=== PATIENT | female | born 1960 | race American Indian/Alaskan Native ===

== ENCOUNTER 2017-08-07 23:48 | Emergency (ER) | payer SELFPAY ==
[2017-08-08 01:52] LABS: Basophils # (Auto) 0.1 K/mm3 (0.0-0.1); Basophils % (Auto) 0.8 % (0.0-1.8); Eosinophils # (Auto) 0.1 K/mm3 (0.0-0.4); Eosinophils % (Auto) 1.3 % (0.0-4.3); Hematocrit 42.5 % (30.3-42.9); Hemoglobin 14.9 gm/dl (10.1-14.3); Lymphocytes # (Auto) 3.9 K/mm3 (1.2-5.4); Lymphocytes % (Auto) 40.4 % (13.4-35.0); Mean Corpuscular HGB Conc 35 % (30-34); Mean Corpuscular Hemoglobin 29 pg (28-32); Mean Corpuscular Volume 82 fl (79-97); Monocytes # (Auto) 0.8 K/mm3 (0.0-0.8); Platelet Count 300 K/mm3 (140-440); Red Blood Count 5.16 M/mm3 (3.65-5.03); Red Cell Distribution Width 13.3 % (13.2-15.2)
[2017-08-08 02:04] LABS: BUN/Creatinine Ratio 21; Blood Urea Nitrogen 17 mg/dL (7-17); Hemolysis Index 0
--- NOTE | 2017-08-08 02:54 | XRay Report ---
FINAL REPORT EXAM: XR ANKLE 2V LT HISTORY: Lt lower leg pain post trauma TECHNIQUE: AP and lateral views of the left ankle were submitted. FINDINGS: There are no skeletal or soft tissue abnormalities. IMPRESSION: Within normal limits.
--- NOTE | 2017-08-08 02:56 | XRay Report ---
FINAL REPORT EXAM: XR TIBIA FIBULA 2V LT HISTORY: Lt lower leg pain post trauma TECHNIQUE: Four views of the left tibia-fibula were obtained. FINDINGS: There is no evidence of fracture or soft tissue injury. Patellar spurring is noted superiorly. The soft tissues otherwise are well maintained. IMPRESSION: No evidence of acute injury.
[2017-08-08] MEDS ORDERED: PERCOCET 5/325 ONE (06:42)
[2017-08-08] MEDS ORDERED: PERCOCET 5/325 PO ONE (06:42)
--- NOTE | 2017-08-08 08:02 | Emergency Department Report ---
ED Lower Extremity HPI - General Chief Complaint: Extremity Injury, Lower Stated Complaint: LT LEG PAIN Time Seen by Provider: 08/08/17 07:06 Source: patient Mode of arrival: Ambulatory Limitations: No Limitations - History of Present Illness Initial Comments: This is a 57-year-old female nontoxic, well nourished in appearance, no acute signs of distress presents to the ED with c/o of left lower leg pain statues post fall that occurred on 07/27/2017. Patient stated she had a fall at work. Patient stated pain relieves with OTC medications but has not been subsided yet. Patient denies any calf pain, calf tenderness, hemoptysis, chest pain, shortness of breathe, fever, chills, headache, nausea, vomiting, numbness or tingling. Patient denies any allergies or PMH. MD Complaint: leg injury Injury: Leg: Left Type of Injury: blunt Place: work Severity: mild Severity scale (0 -10): 8 Improves With: immobilization Worsens With: movement, palpation Context: fall Associated Symptoms: ambulatory. denies: snap/pop sensation, swelling, numbness , tingling, unable to bear weight, able to partially bear weight - Related Data Previous Rx's Medication Instructions Recorded Last Taken Type HYDROcodone/APAP 5-325 [[place] 1 each PO Q6HR PRN #20 tablet 01/24/14 Unknown Rx 5/325] Acetaminophen/Codeine 1 tab PO Q6H PRN #20 tab 05/27/14 Unknown Rx [Acetaminophen-Codeine #3 TAB] Ibuprofen [Motrin 800 MG tab] 800 mg PO Q8H #30 tablet 05/27/14 Unknown Rx Promethazine Dm [Phenergan Dm 5 ml PO Q6H PRN #50 ml 05/27/14 Unknown Rx 6.25/15 mg 5 ml] ALBUTEROL Inhaler [Proair] 2 puff IH QID PRN #1 inhalation 06/08/14 Unknown Rx Azithromycin [Zithromax Z-JESSENIA] 250 mg PO DAILY #6 tablet 06/08/14 Unknown Rx Benzonatate [Tessalon Perles] 100 mg PO Q8HR PRN #30 capsule 06/08/14 Unknown Rx Pregabalin [Lyrica] 25 mg PO BID #60 cap 06/29/15 Unknown Rx oxyCODONE /ACETAMINOPHEN [Percocet 1 tab PO Q6HR PRN #20 tablet 06/29/15 Unknown Rx 5/325] Amoxicillin/K Clav Tab [Augmentin 1 tab PO Q12HR #20 tab 05/24/16 Unknown Rx 875 mg] Ibuprofen [Motrin] 800 mg PO Q8HR PRN #15 tablet 05/24/16 Unknown Rx traMADol [Ultram] 50 mg PO Q6HR PRN #15 tablet 08/08/17 Unknown Rx Allergies Allergy/AdvReac Type Severity Reaction Status Date / Time No Known Allergies Allergy Verified 06/29/13 19:33 ED Review of Systems ROS: Stated complaint: LT LEG PAIN Other details as noted in HPI Constitutional: denies: chills, fever Eyes: denies: eye pain, eye discharge, vision change ENT: denies: ear pain, throat pain Respiratory: denies: cough, shortness of breath, wheezing Cardiovascular: denies: chest pain, palpitations Endocrine: no symptoms reported Gastrointestinal: denies: abdominal pain, nausea, diarrhea Genitourinary: denies: urgency, dysuria, discharge Musculoskeletal: denies: back pain, joint swelling, arthralgia Skin: denies: rash, lesions Neurological: denies: headache, weakness, paresthesias Psychiatric: denies: anxiety, depression Hematological/Lymphatic: denies: easy bleeding, easy bruising ED Past Medical Hx - Past Medical History Hx Diabetes: Yes (diet controlled) Additional medical history: right knee injury - Surgical History Hx Cholecystectomy: Yes Additional Surgical History: c section. Hyst - Social History Smoking Status: Current Every Day Smoker Substance Use Type: None - Medications Home Medications: Home Medications Medication Instructions Recorded Confirmed Last Taken Type HYDROcodone/APAP 5-325 [[place] 1 each PO Q6HR PRN #20 tablet 01/24/14 05/27/14 Unknown Rx 5/325] Acetaminophen/Codeine 1 tab PO Q6H PRN #20 tab 05/27/14 Unknown Rx [Acetaminophen-Codeine #3 TAB] Ibuprofen [Motrin 800 MG tab] 800 mg PO Q8H #30 tablet 05/27/14 Unknown Rx Promethazine Dm [Phenergan Dm 5 ml PO Q6H PRN #50 ml 05/27/14 Unknown Rx 6.25/15 mg 5 ml] ALBUTEROL Inhaler [Proair] 2 puff IH QID PRN #1 inhalation 06/08/14 Unknown Rx Azithromycin [Zithromax Z-JESSENIA] 250 mg PO DAILY #6 tablet 06/08/14 Unknown Rx Benzonatate [Tessalon Perles] 100 mg PO Q8HR PRN #30 capsule 06/08/14 Unknown Rx Pregabalin [Lyrica] 25 mg PO BID #60 cap 06/29/15 Unknown Rx oxyCODONE /ACETAMINOPHEN [Percocet 1 tab PO Q6HR PRN #20 tablet 06/29/15 Unknown Rx 5/325] Amoxicillin/K Clav Tab [Augmentin 1 tab PO Q12HR #20 tab 05/24/16 Unknown Rx 875 mg] Ibuprofen [Motrin] 800 mg PO Q8HR PRN #15 tablet 05/24/16 Unknown Rx traMADol [Ultram] 50 mg PO Q6HR PRN #15 tablet 08/08/17 Unknown Rx ED Physical Exam - General Limitations: No Limitations General appearance: alert, in no apparent distress - Head Head exam: Present: atraumatic, normocephalic - Eye Eye exam: Present: normal appearance - ENT ENT exam: Present: mucous membranes moist - Neck Neck exam: Present: normal inspection, full ROM. Absent: tenderness, meningismus, lymphadenopathy, thyromegaly - Respiratory Respiratory exam: Present: normal lung sounds bilaterally. Absent: respiratory distress, wheezes, rales, rhonchi, stridor, chest wall tenderness, accessory muscle use, decreased breath sounds, prolonged expiratory - Cardiovascular Cardiovascular Exam: Present: regular rate, normal rhythm, normal heart sounds. Absent: irregular rhythm, systolic murmur, diastolic murmur, rubs, gallop - GI/Abdominal GI/Abdominal exam: Present: soft, normal bowel sounds. Absent: distended, tenderness, guarding, rebound, rigid, diminished bowel sounds - Rectal Rectal exam: Present: deferred - Extremities Exam Extremities exam: Present: normal inspection, full ROM, tenderness, normal capillary refill. Absent: pedal edema, joint swelling, calf tenderness - Expanded Lower Extremity Exam Left Hip exam: Present: normal inspection, full ROM Upper Leg exam: Present: normal inspection, full ROM Knee exam: Present: normal inspection, full ROM, full knee extension. Absent: tenderness, swelling, abrasion, laceration, ecchymosis, deformity, crepidus, dislocation, erythema, effusion, pain w/ pronation/supination, posterior draw sign, pain/laxity with valgus, pain/laxity with varus Lower Leg exam: Present: normal inspection, full ROM. Absent: tenderness, swelling, abrasion, laceration, ecchymosis, deformity, crepidus, dislocation, erythema, palpable cord, Martine's sign Ankle exam: Present: normal inspection, full ROM. Absent: tenderness, swelling , abrasion, laceration, ecchymosis, deformity, crepidus, dislocation, erythema, anterior draw sign Foot/Toe exam: Present: normal inspection, full ROM. Absent: tenderness, swelling, abrasion, laceration, ecchymosis, deformity, crepidus, dislocation, erythema, amputation, puncture wound, foreign body, calcaneal tenderness, tenderness at base of 5th metatarsal, nail avulsion, subungual hematoma Neuro vascular tendon exam: Present: no vascular compromise. Absent: pulse deficit, abnormal cap refill, motor deficit, sensory deficit, tendon deficit, extremity cold to touch, pallor, abnormal 2-point discrimination, decreased fine /light touch, foot drop, peroneal nerve deficit, significant pain with passive ROM of distal joint Gait: Positive: observed and normal 1 - pain - Back Exam Back exam: Present: normal inspection, full ROM. Absent: tenderness, CVA tenderness (R), CVA tenderness (L), muscle spasm, paraspinal tenderness, vertebral tenderness, rash noted - Neurological Exam Neurological exam: Present: alert, oriented X3, CN II-XII intact, normal gait, reflexes normal - Psychiatric Psychiatric exam: Present: normal affect, normal mood - Skin Skin exam: Present: warm, dry, intact, normal color. Absent: rash ED Course - Reevaluation(s) Reevaluation #1: 08/08/17 08:12 Patient is speaking in full sentences with no signs of distress noted. ED Lower Extremity MDM - Lab Data Result diagrams: 08/08/17 01:31 08/08/17 01:31 - Medical Decision Making This is a 57-year-old female that presents with left leg pain. Patient stable and was examined by me. Labs within normal limits and negative d-dimer. There is no calf pain or calf tenderness. There is a negative Homans sign. There is no redness or streaking red calf area. The calf is not swollen. Patient did receive pain medication which patient stated pain is relieved and subsided. An x-ray has been obtained and dictated by radiologist within normal limits and patient was notified of the x-ray results with no questions by the patient. Patient states she does have a Jimmy wrap so she will put one on patient received a urgent care. Patient was instructed to RICE therapy. Patient was also instructed referred to Follow-up with a orthopedic doctor in 3-5 days or if symptoms worsen and continue return to emergency room as soon as possible. At time of discharge, the patient does not seem toxic or ill in appearance. No acute signs of distress noted. Patient agrees to discharge treatment plan of care. No further questions noted by the patient. Patient was also instructed not to operate any machinery after discharged due to drowsiness of pain medication that she received in the ED. Critical care attestation.: If time is entered above; I have spent that time in minutes in the direct care of this critically ill patient, excluding procedure time. ED Disposition Clinical Impression: Left leg pain Disposition: DC-01 TO HOME OR SELFCARE Is pt being admited?: No Does the pt Need Aspirin: No Condition: Stable Instructions: Arthralgia (ED), Tramadol (By mouth) Additional Instructions: Follow-up with a orthopedic doctor in 3-5 days or if symptoms worsen and continue return to emergency room as soon as possible. Prescriptions: traMADol [Ultram] 50 mg PO Q6HR PRN #15 tablet PRN Reason: Pain Referrals: PRIMARY CARE, [Primary Care Provider] - 3-5 Days JOSE FRANCISCO URIOSTEGUI MD [Staff Physician] - 3-5 Days [facility] [Outside] - 3-5 Days Forms: Work/School Release Form(ED)
[2017-08-08 08:23] VITALS: BP 143/63
== END 2017-08-08 08:37 | disposition home or self-care (01) ==
LOC: ED 23:48
DX: M79.605 Pain in left leg (principal); E11.9 Type 2 diabetes mellitus without complications; F17.200 Nicotine dependence, unspecified, uncomplicated
CPT/HCPCS: 36415; 80048; 82962; 85025; 85379; 99284

== ENCOUNTER 2018-03-09 13:27 | Emergency (ER) | payer SELFPAY ==
[2018-03-09 14:55] VITALS: BP 155/73
[2018-03-09] MEDS ORDERED: PROVENTIL IH ONE (16:24)
[2018-03-09] MEDS ORDERED: LIDOCAINE VISCOUS 2% PO ONE (16:24)
--- NOTE | 2018-03-09 16:31 | Emergency Department Report ---
ED General Adult HPI - General Chief complaint: Upper Respiratory Infection Stated complaint: D.I.B/COUGH/UNDERARM BLISTERS Time Seen by Provider: 03/09/18 16:15 Source: patient Mode of arrival: Ambulatory Limitations: No Limitations - History of Present Illness Initial comments: Patient is a 57-year-old female who presents with coughing and shortness of breath. Patient states that she's been coughing for the last couple of days she smokes about a pack a day every day. She states that coughing makes her chest pain worse nothing makes it better. Patient states that it's worse at night she also states that. Patient states that she only has chest pain when she coughs she is no fever no chills no sore throat. - Related Data Previous Rx's Medication Instructions Recorded Last Taken Type HYDROcodone/APAP 5-325 [[place] 1 each PO Q6HR PRN #20 tablet 01/24/14 Unknown Rx 5/325] Acetaminophen/Codeine 1 tab PO Q6H PRN #20 tab 05/27/14 Unknown Rx [Acetaminophen-Codeine #3 TAB] Ibuprofen [Motrin 800 MG tab] 800 mg PO Q8H #30 tablet 05/27/14 Unknown Rx Promethazine Dm (Nf) [Phenergan Dm 5 ml PO Q6H PRN #50 ml 05/27/14 Unknown Rx 6.25/15 mg 5 ml] ALBUTEROL Inhaler (OR & NICU) 2 puff IH QID PRN #1 inhalation 06/08/14 Unknown Rx [Proair] Azithromycin [Zithromax Z-JESSENIA] 250 mg PO DAILY #6 tablet 06/08/14 Unknown Rx Pregabalin [Lyrica] 25 mg PO BID #60 cap 06/29/15 Unknown Rx oxyCODONE /ACETAMINOPHEN [Percocet 1 tab PO Q6HR PRN #20 tablet 06/29/15 Unknown Rx 5/325] Amoxicillin/K Clav Tab [Augmentin 1 tab PO Q12HR #20 tab 05/24/16 Unknown Rx 875 mg] Ibuprofen [Motrin] 800 mg PO Q8HR PRN #15 tablet 05/24/16 Unknown Rx traMADol [Ultram] 50 mg PO Q6HR PRN #15 tablet 08/08/17 Unknown Rx Benzonatate [Tessalon Perles] 100 mg PO Q8HR PRN #30 capsule 03/09/18 Unknown Rx predniSONE [Deltasone] 20 mg PO BID #10 tablet 03/09/18 Unknown Rx Allergies Allergy/AdvReac Type Severity Reaction Status Date / Time No Known Allergies Allergy Verified 06/29/13 19:33 ED Review of Systems ROS: Stated complaint: D.I.B/COUGH/UNDERARM BLISTERS Other details as noted in HPI Constitutional: denies: chills, fever Eyes: denies: eye pain, eye discharge, vision change ENT: denies: ear pain, throat pain Respiratory: cough, shortness of breath. denies: wheezing Cardiovascular: denies: chest pain, palpitations Endocrine: no symptoms reported Gastrointestinal: denies: abdominal pain, nausea, diarrhea Genitourinary: denies: urgency, dysuria, discharge Musculoskeletal: denies: back pain, joint swelling, arthralgia Skin: denies: rash, lesions Neurological: denies: headache, weakness, paresthesias Psychiatric: denies: anxiety, depression Hematological/Lymphatic: denies: easy bleeding, easy bruising ED Past Medical Hx - Past Medical History Previous Medical History?: Yes Hx Diabetes: Yes (diet controlled) Additional medical history: right knee injury, bronchitis - Surgical History Past Surgical History?: Yes Hx Cholecystectomy: Yes Additional Surgical History: c section. Hyst - Social History Smoking Status: Current Every Day Smoker Substance Use Type: Alcohol, Prescribed - Medications Home Medications: Home Medications Medication Instructions Recorded Confirmed Last Taken Type HYDROcodone/APAP 5-325 [[place] 1 each PO Q6HR PRN #20 tablet 01/24/14 05/27/14 Unknown Rx 5/325] Acetaminophen/Codeine 1 tab PO Q6H PRN #20 tab 05/27/14 Unknown Rx [Acetaminophen-Codeine #3 TAB] Ibuprofen [Motrin 800 MG tab] 800 mg PO Q8H #30 tablet 05/27/14 Unknown Rx Promethazine Dm (Nf) [Phenergan Dm 5 ml PO Q6H PRN #50 ml 05/27/14 Unknown Rx 6.25/15 mg 5 ml] ALBUTEROL Inhaler (OR & NICU) 2 puff IH QID PRN #1 inhalation 06/08/14 Unknown Rx [Proair] Azithromycin [Zithromax Z-JESSENIA] 250 mg PO DAILY #6 tablet 06/08/14 Unknown Rx Pregabalin [Lyrica] 25 mg PO BID #60 cap 06/29/15 Unknown Rx oxyCODONE /ACETAMINOPHEN [Percocet 1 tab PO Q6HR PRN #20 tablet 06/29/15 Unknown Rx 5/325] Amoxicillin/K Clav Tab [Augmentin 1 tab PO Q12HR #20 tab 05/24/16 Unknown Rx 875 mg] Ibuprofen [Motrin] 800 mg PO Q8HR PRN #15 tablet 05/24/16 Unknown Rx traMADol [Ultram] 50 mg PO Q6HR PRN #15 tablet 08/08/17 Unknown Rx Benzonatate [Tessalon Perles] 100 mg PO Q8HR PRN #30 capsule 03/09/18 Unknown Rx predniSONE [Deltasone] 20 mg PO BID #10 tablet 03/09/18 Unknown Rx ED Physical Exam - General Limitations: No Limitations General appearance: alert, in no apparent distress - Head Head exam: Present: atraumatic, normocephalic - Eye Eye exam: Present: normal appearance - ENT ENT exam: Present: mucous membranes moist - Neck Neck exam: Present: normal inspection - Respiratory Respiratory exam: Present: normal lung sounds bilaterally. Absent: respiratory distress - Cardiovascular Cardiovascular Exam: Present: regular rate, normal rhythm. Absent: systolic murmur, diastolic murmur, rubs, gallop - GI/Abdominal GI/Abdominal exam: Present: soft, normal bowel sounds - Extremities Exam Extremities exam: Present: normal inspection - Back Exam Back exam: Present: normal inspection - Neurological Exam Neurological exam: Present: alert, oriented X3 - Psychiatric Psychiatric exam: Present: normal affect, normal mood - Skin Skin exam: Present: warm, dry, intact, normal color. Absent: rash ED Course Vital Signs 03/09/18 14:50 Temperature 98.7 F Pulse Rate 89 Respiratory 18 Rate Blood Pressure 155/73 O2 Sat by Pulse 97 Oximetry ED Medical Decision Making - Medical Decision Making Cdx: Bronchitis DDX: Sinusitis, allergic rhinitis, viral URI I will give patient breathing treatment or lidocaine and I'll send patient home with steroids Tessalon Perles and I will have patient follow-up for with pcp. Discussed plan with patient. Patient agrees with plan. Additional verbal discharge instructions were given. Critical care attestation.: If time is entered above; I have spent that time in minutes in the direct care of this critically ill patient, excluding procedure time. ED Disposition Clinical Impression: Bronchitis, Cough Disposition: DC-01 TO HOME OR SELFCARE Is pt being admited?: No Does the pt Need Aspirin: No Condition: Stable Instructions: Chronic Bronchitis (ED) Prescriptions: Benzonatate [Tessalon Perles] 100 mg PO Q8HR PRN #30 capsule PRN Reason: Cough predniSONE [Deltasone] 20 mg PO BID #10 tablet Referrals: BERHANE SUAZO MD [Staff Physician] - 3-5 Days
== END 2018-03-09 17:54 | disposition home or self-care (01) ==
LOC: ED 13:27
DX: J40 Bronchitis, not specified as acute or chronic (principal); E11.9 Type 2 diabetes mellitus without complications; F17.200 Nicotine dependence, unspecified, uncomplicated; F10.10 Alcohol abuse, uncomplicated; Z90.49 Acquired absence of other specified parts of digestive tract
CPT/HCPCS: 94640

== ENCOUNTER 2020-03-28 08:21 | Emergency (ER) | payer OTHER ==
[2020-03-28 08:27] VITALS: BP 138/53
[2020-03-28] MEDS ORDERED: IBUPROFEN 800 MG TAB PO ONE (10:22)
[2020-03-28] MEDS ORDERED: LIDOCAINE (1%) 10 MG/1 ML VIAL 20 ML MDV INFILTRATI ONE (10:25)
--- NOTE | 2020-03-28 10:27 | Emergency Department Report ---
ED General Adult HPI - General Chief complaint: Extremity Problem,Nontraumatic Stated complaint: FINGER/PAIN Time Seen by Provider: 03/28/20 09:18 Source: patient Mode of arrival: Ambulatory Limitations: No Limitations - History of Present Illness Initial comments: 59-year-old -[place] female patient presents with complaints of right middle finger pain and swelling x3 days. She rates her pain as a 8/10 in severity and denies any fever/chills/sweats or difficulty moving the finger or numbness/tingling/weakness in the finger. 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 She denies any allergies. - Related Data Previous Rx's Medication Instructions Recorded Last Taken Type HYDROcodone/APAP 5-325 [[place] 1 each PO Q6HR PRN #20 tablet 01/24/14 Unknown Rx 5/325] Ibuprofen [Motrin 800 MG tab] 800 mg PO Q8H #30 tablet 05/27/14 Unknown Rx Promethazine Dm (Nf) [Phenergan Dm 5 ml PO Q6H PRN #50 ml 05/27/14 Unknown Rx 6.25/15 mg 5 ml] Albuterol Mdi (or & Nicu Only) 2 puff IH QID PRN #1 inhalation 06/08/14 Unknown Rx [Proair] Azithromycin [Zithromax Z-JESSENIA] 250 mg PO DAILY #6 tablet 06/08/14 Unknown Rx Pregabalin [Lyrica] 25 mg PO BID #60 cap 06/29/15 Unknown Rx oxyCODONE /ACETAMINOPHEN [Percocet 1 tab PO Q6HR PRN #20 tablet 06/29/15 Unknown Rx 5/325] Amoxicillin/K Clav Tab [Augmentin 1 tab PO Q12HR #20 tab 05/24/16 Unknown Rx 875 mg] traMADoL [Ultram] 50 mg PO Q6HR PRN #15 tablet 08/08/17 Unknown Rx Benzonatate [Tessalon Perles] 100 mg PO Q8HR PRN #30 capsule 03/09/18 Unknown Rx predniSONE [Deltasone] 20 mg PO BID #10 tablet 03/09/18 Unknown Rx Baclofen [Lioresal] 10 mg PO TID #15 tab 08/18/18 Unknown Rx Cyclobenzaprine HCl [Flexeril 5 MG 5 mg PO TID PRN #10 tab 09/25/19 Unknown Rx TAB] Ibuprofen [Motrin 600 MG tab] 600 mg PO Q8H PRN #20 tablet 09/25/19 Unknown Rx Acetaminophen/Codeine [Tylenol 1 tab PO Q6H PRN #10 tab 03/28/20 Unknown Rx /Codeine # 3 tab] Ibuprofen [Motrin 800 MG tab] 800 mg PO Q8HR PRN #15 tablet 03/28/20 Unknown Rx Sulfamethoxazole/Trimethoprim 2 each PO BID 10 Days #40 tablet 03/28/20 Unknown Rx [Bactrim 400-80 mg Tablet] Allergies Allergy/AdvReac Type Severity Reaction Status Date / Time No Known Allergies Allergy Verified 06/29/13 19:33 ED Review of Systems ROS: Stated complaint: FINGER/PAIN Other details as noted in HPI Constitutional: denies: chills, fever, malaise Respiratory: denies: SOB with exertion Gastrointestinal: denies: nausea, vomiting Musculoskeletal: joint swelling, arthralgia Skin: change in color Neurological: denies: numbness, paresthesias Hematological/Lymphatic: denies: swollen glands ED Past Medical Hx - Past Medical History Previous Medical History?: Yes Hx Hypertension: Yes Hx Diabetes: Yes (diet controlled) Additional medical history: right knee injury, bronchitis - Surgical History Past Surgical History?: Yes Hx Cholecystectomy: Yes Additional Surgical History: c section. Hystectomy - Social History Smoking Status: Current Every Day Smoker - Medications Home Medications: Home Medications Medication Instructions Recorded Confirmed Last Taken Type HYDROcodone/APAP 5-325 [[place] 1 each PO Q6HR PRN #20 tablet 01/24/14 05/27/14 Unknown Rx 5/325] Ibuprofen [Motrin 800 MG tab] 800 mg PO Q8H #30 tablet 05/27/14 Unknown Rx Promethazine Dm (Nf) [Phenergan Dm 5 ml PO Q6H PRN #50 ml 05/27/14 Unknown Rx 6.25/15 mg 5 ml] Albuterol Mdi (or & Nicu Only) 2 puff IH QID PRN #1 inhalation 06/08/14 Unknown Rx [Proair] Azithromycin [Zithromax Z-JESSENIA] 250 mg PO DAILY #6 tablet 06/08/14 Unknown Rx Pregabalin [Lyrica] 25 mg PO BID #60 cap 06/29/15 Unknown Rx oxyCODONE /ACETAMINOPHEN [Percocet 1 tab PO Q6HR PRN #20 tablet 06/29/15 Unknown Rx 5/325] Amoxicillin/K Clav Tab [Augmentin 1 tab PO Q12HR #20 tab 05/24/16 Unknown Rx 875 mg] traMADoL [Ultram] 50 mg PO Q6HR PRN #15 tablet 08/08/17 Unknown Rx Benzonatate [Tessalon Perles] 100 mg PO Q8HR PRN #30 capsule 03/09/18 Unknown Rx predniSONE [Deltasone] 20 mg PO BID #10 tablet 03/09/18 Unknown Rx Baclofen [Lioresal] 10 mg PO TID #15 tab 08/18/18 Unknown Rx Cyclobenzaprine HCl [Flexeril 5 MG 5 mg PO TID PRN #10 tab 09/25/19 Unknown Rx TAB] Ibuprofen [Motrin 600 MG tab] 600 mg PO Q8H PRN #20 tablet 09/25/19 Unknown Rx Acetaminophen/Codeine [Tylenol 1 tab PO Q6H PRN #10 tab 03/28/20 Unknown Rx /Codeine # 3 tab] Ibuprofen [Motrin 800 MG tab] 800 mg PO Q8HR PRN #15 tablet 03/28/20 Unknown Rx Sulfamethoxazole/Trimethoprim 2 each PO BID 10 Days #40 tablet 03/28/20 Unknown Rx [Bactrim 400-80 mg Tablet] ED Physical Exam - General Limitations: No Limitations General appearance: alert, in no apparent distress, obese - Head Head exam: Present: atraumatic, normocephalic - Eye Eye exam: Present: normal appearance. Absent: scleral icterus - Neck Neck exam: Present: normal inspection - Respiratory Respiratory exam: Absent: respiratory distress - Cardiovascular Cardiovascular Exam: Present: regular rate - Neurological Exam Neurological exam: Present: alert, oriented X3 - Psychiatric Psychiatric exam: Present: normal affect, normal mood - Skin Skin exam: Present: warm, dry, intact, erythema (Mild erythema erythema and tenderness to palpation with fluctuance noted to the tip of the right middle fin [place]; patient has full range of motion and sensation of the finger with normal capillary refill). Absent: rash ED Course Vital Signs 03/28/20 03/28/20 08:27 10:30 Temperature 98.0 F Pulse Rate 77 Respiratory 18 20 Rate Blood Pressure 138/53 [Right] O2 Sat by Pulse 98 Oximetry - I & D Finger Type of Procedure: Simple Site: Right middle finger Blade Size: 11 I & D Procedure: betadine prep, sterile drapes applied, sterile dressing applied Progress: 2 cc of lidocaine 1% used anesthetize area. Minimal bleeding occurred. Mild purulent drainage was obtained. Patient was placed in a sterile dressing. She tolerated procedure well without any immediate complications. ED Medical Decision Making - Medical Decision Making 59-year-old -[place] female patient presents with complaints of right middle finger pain and swelling x3 days. She rates her pain as a 8/10 in severity and denies any fever/chills/sweats or difficulty moving the finger or numbness/tingling/weakness in the finger. 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 She denies any allergies. Paronychia noted to right middle finger. Incision and drainage was performed and mild purulent drainage was obtained and sent for wound culture. Patient is well-appearing, her vitals are normal, she is stable for discharge home. Prescription for Bactrim given along with mupirocin. Patient instructed to perform warm water soaks and follow-up with primary care doctor in 3 days. Wound care and strict return precautions were discussed in detail with patient who verbalizes understanding. Critical care attestation.: If time is entered above; I have spent that time in minutes in the direct care of this critically ill patient, excluding procedure time. ED Disposition Clinical Impression: Paronychia of finger of right hand Disposition: DC-01 TO HOME OR SELFCARE Is pt being admited?: No Condition: Stable Instructions: Paronychia (ED), Abscess Incision and Drainage (ED) Prescriptions: Sulfamethoxazole/Trimethoprim [Bactrim 400-80 mg Tablet] 2 each PO BID 10 Days #40 tablet Ibuprofen [Motrin 800 MG tab] 800 mg PO Q8HR PRN #15 tablet PRN Reason: Pain Acetaminophen/Codeine [Tylenol /Codeine # 3 tab] 1 tab PO Q6H PRN #10 tab PRN Reason: Pain , Severe (7-10) Referrals: [facility] BISI MARTINEZ MD [Primary Care Provider] - 03/30/20 Forms: Work/School Release Form(ED)
== END 2020-03-28 11:44 | disposition home or self-care (01) ==
LOC: ED 08:21
DX: L03.011 Cellulitis of right finger (principal); I10 Essential (primary) hypertension; E11.9 Type 2 diabetes mellitus without complications; F17.200 Nicotine dependence, unspecified, uncomplicated; Z90.49 Acquired absence of other specified parts of digestive tract; Z90.710 Acquired absence of both cervix and uterus; Z98.890 Other specified postprocedural states; Z79.899 Other long term (current) drug therapy
CPT/HCPCS: 87076; 87116; 87186

== ENCOUNTER 2020-04-02 14:52 | Emergency (ER) | payer OTHER ==
[2020-04-02 15:09] VITALS: BP 153/58
[2020-04-02] MEDS ORDERED: HYDROcodone/ACETAMINOPHEN 5-325 MG TAB PO ONE (16:08)
[2020-04-02] MEDS ORDERED: BACITRACIN ZINC OINT 28.4 GM TP PRN (16:52)
--- NOTE | 2020-04-02 16:56 | Emergency Department Report ---
ED General Adult HPI - General Chief complaint: Extremity Injury, Upper Stated complaint: RT HAND PAIN Time Seen by Provider: 04/02/20 15:59 Source: patient Mode of arrival: Ambulatory Limitations: No Limitations - History of Present Illness Initial comments: 59-year-old -[place] female was seen in this emergency room 5 days ago for a right middle finger paronychia. Patient presents states that her finger is still hurting and has not improved. She reports taking her antibiotic as prescribed and pain medication as prescribed. She denies any fever any new trauma to her finger. Location: right (middle finger paronychia ) Severity scale (0 -10): 10 Quality: stabbing Consistency: constant Worsens with: movement Associated Symptoms: denies other symptoms. denies: chest pain, cough, diapho resis, fever/chills, loss of appetite Treatments Prior to Arrival: NSAID - Related Data Previous Rx's Medication Instructions Recorded Last Taken Type HYDROcodone/APAP 5-325 [[place] 1 each PO Q6HR PRN #20 tablet 01/24/14 Unknown Rx 5/325] Ibuprofen [Motrin 800 MG tab] 800 mg PO Q8H #30 tablet 05/27/14 Unknown Rx Promethazine Dm (Nf) [Phenergan Dm 5 ml PO Q6H PRN #50 ml 05/27/14 Unknown Rx 6.25/15 mg 5 ml] Albuterol Mdi (or & Nicu Only) 2 puff IH QID PRN #1 inhalation 06/08/14 Unknown Rx [Proair] Azithromycin [Zithromax Z-JESSENIA] 250 mg PO DAILY #6 tablet 06/08/14 Unknown Rx Pregabalin [Lyrica] 25 mg PO BID #60 cap 06/29/15 Unknown Rx oxyCODONE /ACETAMINOPHEN [Percocet 1 tab PO Q6HR PRN #20 tablet 06/29/15 Unknown Rx 5/325] Amoxicillin/K Clav Tab [Augmentin 1 tab PO Q12HR #20 tab 05/24/16 Unknown Rx 875 mg] traMADoL [Ultram] 50 mg PO Q6HR PRN #15 tablet 08/08/17 Unknown Rx Benzonatate [Tessalon Perles] 100 mg PO Q8HR PRN #30 capsule 03/09/18 Unknown Rx predniSONE [Deltasone] 20 mg PO BID #10 tablet 03/09/18 Unknown Rx Baclofen [Lioresal] 10 mg PO TID #15 tab 08/18/18 Unknown Rx Cyclobenzaprine HCl [Flexeril 5 MG 5 mg PO TID PRN #10 tab 09/25/19 Unknown Rx TAB] Ibuprofen [Motrin 600 MG tab] 600 mg PO Q8H PRN #20 tablet 09/25/19 Unknown Rx Acetaminophen/Codeine [Tylenol 1 tab PO Q6H PRN #10 tab 03/28/20 Unknown Rx /Codeine # 3 tab] Ibuprofen [Motrin 800 MG tab] 800 mg PO Q8HR PRN #15 tablet 03/28/20 Unknown Rx Sulfamethoxazole/Trimethoprim 2 each PO BID 10 Days #40 tablet 03/28/20 Unknown Rx [Bactrim 400-80 mg Tablet] Allergies Allergy/AdvReac Type Severity Reaction Status Date / Time No Known Allergies Allergy Verified 06/29/13 19:33 ED Review of Systems ROS: Stated complaint: RT HAND PAIN Other details as noted in HPI Comment: All other systems reviewed and negative Constitutional: denies: chills, fever ENT: denies: ear pain, throat pain, dental pain, congestion Respiratory: denies: cough, shortness of breath, SOB with exertion Cardiovascular: denies: chest pain, palpitations, edema Gastrointestinal: denies: abdominal pain Genitourinary: denies: dysuria Skin: other (right middle finger pain and swelling). denies: rash Neurological: denies: headache ED Past Medical Hx - Past Medical History Previous Medical History?: Yes Hx Hypertension: Yes Hx Diabetes: Yes (diet controlled) Additional medical history: right knee injury, bronchitis - Surgical History Past Surgical History?: Yes Hx Cholecystectomy: Yes Additional Surgical History: c section. Hystectomy - Social History Smoking Status: Current Every Day Smoker Substance Use Type: Alcohol - Medications Home Medications: Home Medications Medication Instructions Recorded Confirmed Last Taken Type HYDROcodone/APAP 5-325 [[place] 1 each PO Q6HR PRN #20 tablet 01/24/14 05/27/14 Unknown Rx 5/325] Ibuprofen [Motrin 800 MG tab] 800 mg PO Q8H #30 tablet 05/27/14 Unknown Rx Promethazine Dm (Nf) [Phenergan Dm 5 ml PO Q6H PRN #50 ml 05/27/14 Unknown Rx 6.25/15 mg 5 ml] Albuterol Mdi (or & Nicu Only) 2 puff IH QID PRN #1 inhalation 06/08/14 Unknown Rx [Proair] Azithromycin [Zithromax Z-JESSENIA] 250 mg PO DAILY #6 tablet 06/08/14 Unknown Rx Pregabalin [Lyrica] 25 mg PO BID #60 cap 06/29/15 Unknown Rx oxyCODONE /ACETAMINOPHEN [Percocet 1 tab PO Q6HR PRN #20 tablet 06/29/15 Unknown Rx 5/325] Amoxicillin/K Clav Tab [Augmentin 1 tab PO Q12HR #20 tab 05/24/16 Unknown Rx 875 mg] traMADoL [Ultram] 50 mg PO Q6HR PRN #15 tablet 08/08/17 Unknown Rx Benzonatate [Tessalon Perles] 100 mg PO Q8HR PRN #30 capsule 03/09/18 Unknown Rx predniSONE [Deltasone] 20 mg PO BID #10 tablet 03/09/18 Unknown Rx Baclofen [Lioresal] 10 mg PO TID #15 tab 08/18/18 Unknown Rx Cyclobenzaprine HCl [Flexeril 5 MG 5 mg PO TID PRN #10 tab 09/25/19 Unknown Rx TAB] Ibuprofen [Motrin 600 MG tab] 600 mg PO Q8H PRN #20 tablet 09/25/19 Unknown Rx Acetaminophen/Codeine [Tylenol 1 tab PO Q6H PRN #10 tab 03/28/20 Unknown Rx /Codeine # 3 tab] Ibuprofen [Motrin 800 MG tab] 800 mg PO Q8HR PRN #15 tablet 03/28/20 Unknown Rx Sulfamethoxazole/Trimethoprim 2 each PO BID 10 Days #40 tablet 03/28/20 Unknown Rx [Bactrim 400-80 mg Tablet] ED Physical Exam - General Limitations: No Limitations General appearance: alert, in no apparent distress - Head Head exam: Present: atraumatic - Eye Eye exam: Present: normal appearance - ENT ENT exam: Present: normal exam - Respiratory Respiratory exam: Present: normal lung sounds bilaterally. Absent: respiratory distress - Cardiovascular Cardiovascular Exam: Present: regular rate, normal heart sounds - GI/Abdominal GI/Abdominal exam: Present: soft. Absent: distended, tenderness - Rectal Rectal exam: Absent: deferred - External exam: Present: normal external exam - Extremities Exam Extremities exam: Present: other (right middle finger small amount of pus collection at distal medial phalanx) - Neurological Exam Neurological exam: Present: alert, oriented X3 - Psychiatric Psychiatric exam: Present: normal affect - Skin Skin exam: Present: warm, dry, intact ED Course Vital Signs 04/02/20 04/02/20 15:08 16:23 Temperature 98.3 F Pulse Rate 72 Respiratory 15 18 Rate Blood Pressure 153/58 O2 Sat by Pulse 98 Oximetry - Reevaluation(s) Reevaluation #1: 04/02/20 16:59 I&D done small amount of pus drained right middle finger soaked in Betadine and normal saline for about 30 minutes patient tolerated well - I & D Right Hand Type of Procedure: Simple Site: right distal phalanx Blade Size: 11 I & D Procedure: betadine prep Progress: I&D of the medial portion of the distal phalanx of the right finger with the 11 blade small amount of pus drained patient tolerated well ED Medical Decision Making - Medical Decision Making Patient seen in this emergency room 5 days ago and I&D done for right medial distal phalanx finger she is currently taking Bactrim still has 5 more days left of Bactrim repeat I&D as the wound has already closed and a small amount of pus drained patient tolerated well plan is for patient to continue with Tylenol 3 as previously prescribed she is also to complete the Bactrim DS as prescribed. She is instructed to do 3 times a day warm soap water is water soaks for at least 15 minutes Critical Care Time: No Critical care attestation.: If time is entered above; I have spent that time in minutes in the direct care of this critically ill patient, excluding procedure time. ED Disposition Clinical Impression: Paronychia of finger of right hand, Paronychia of right index finger Disposition: DC-01 TO HOME OR SELFCARE Is pt being admited?: No Does the pt Need Aspirin: No Condition: Stable Instructions: Paronychia Additional Instructions: Continue with the Bactrim until all antibiotics are completed. Continue with Tylenol 3 as needed for pain. Motrin 800 mg as needed as prescribed for pain. Do warm water soaks at least 3 times a day for 15 minutes. Follow-up with your primary care doctor in 3 to 5 days if no improvement or worsening symptoms Referrals: PRIMARY CARE, [Primary Care Provider] - 3-5 Days CARBUCCIA,KEANU, MD [Staff Physician] - 3-5 Days Time of Disposition: 17:05
== END 2020-04-02 17:32 | disposition home or self-care (01) ==
LOC: ED 14:52
DX: L03.011 Cellulitis of right finger (principal); I10 Essential (primary) hypertension; E11.9 Type 2 diabetes mellitus without complications; F17.200 Nicotine dependence, unspecified, uncomplicated; Z90.710 Acquired absence of both cervix and uterus; Z90.49 Acquired absence of other specified parts of digestive tract; Z79.899 Other long term (current) drug therapy
CPT/HCPCS: 99282

== ENCOUNTER 2020-09-21 10:06 | Outpatient (CLI) | payer OTHER ==
[2020-09-21 11:12] LABS: Basophils # (Auto) 0.1 K/mm3 (0.0-0.1); Basophils % (Auto) 0.8 % (0.0-1.8); Eosinophils # (Auto) 0.1 K/mm3 (0.0-0.4); Eosinophils % (Auto) 1.2 % (0.0-4.3); Hematocrit 40.9 % (30.3-42.9); Hemoglobin 13.8 gm/dl (10.1-14.3); Lymphocytes # (Auto) 3.1 K/mm3 (1.2-5.4); Lymphocytes % (Auto) 45.9 % (13.4-35.0); Mean Corpuscular HGB Conc 34 % (30-34); Mean Corpuscular Volume 87 fl (79-97); Monocytes # (Auto) 0.6 K/mm3 (0.0-0.8); Monocytes % (Auto) 9.1 % (0.0-7.3); Platelet Count 263 K/mm3 (140-440); Red Blood Count 4.68 M/mm3 (3.65-5.03); Red Cell Distribution Width 13.3 % (13.2-15.2)
[2020-09-21 11:32] LABS: Alanine Aminotransferase 13 units/L (7-56); Albumin 4.1 g/dL (3.9-5); Blood Urea Nitrogen 12 mg/dL (7-17); Calcium 9.2 mg/dL (8.4-10.2); Erythrocyte Sedimentation Rate 13 mm/Hr (0-20); Hemolysis Index 4
[2020-09-21 11:55] LABS: BUN/Creatinine Ratio 17
== END 2020-09-21 10:07 | disposition home or self-care (01) ==
LOC: LAB 10:06
PROVIDERS: ATTEND Specialist
DX: G62.9 Polyneuropathy, unspecified (principal); G65.0 Sequelae of Guillain-Barre syndrome
CPT/HCPCS: 36415; 80053; 82306; 82607; 83921; 84165; 85025; 85652; 86038; 86225; 86235; 86334; 86431

== ENCOUNTER 2020-12-25 07:07 | Emergency (ER) | payer OTHER ==
[2020-12-25 07:41] VITALS: BP 126/56
[2020-12-25] MEDS ORDERED: ASPIRIN 325 MG TAB PO ONE (07:41)
[2020-12-25 08:11] LABS: Basophils # (Auto) 0.1 K/mm3 (0.0-0.1); Basophils % (Auto) 1.1 % (0.0-1.8); Eosinophils # (Auto) 0.1 K/mm3 (0.0-0.4); Eosinophils % (Auto) 1.2 % (0.0-4.3); Hematocrit 37.6 % (30.3-42.9); Hemoglobin 13.5 gm/dl (10.1-14.3); Lymphocytes # (Auto) 2.3 K/mm3 (1.2-5.4); Mean Corpuscular HGB Conc 36 % (30-34); Mean Corpuscular Volume 84 fl (79-97); Monocytes # (Auto) 0.6 K/mm3 (0.0-0.8); Monocytes % (Auto) 9.2 % (0.0-7.3); Platelet Count 263 K/mm3 (140-440); Red Cell Distribution Width 12.8 % (13.2-15.2)
--- NOTE | 2020-12-25 08:23 | XRay Report ---
CHEST PA AND LATERAL VIEWS INDICATION: chest pain. COMPARISON: 06/08/2014. FINDINGS: Support devices: None. Heart: Within normal limits. Lungs/Pleura: No consolidation or effusion. There are mild increased reticular markings in both lungs which are similar to the remote prior. IMPRESSION: 1. No acute findings. Signer Name: Nithin Vivas MD Signed: 12/25/2020 8:18 AM Workstation Name: [email or web address]
[2020-12-25 08:35] LABS: Alanine Aminotransferase 12 units/L (7-56); Albumin 4.3 g/dL (3.9-5); Blood Urea Nitrogen 13 mg/dL (7-17); Calcium 9.5 mg/dL (8.4-10.2); Hemolysis Index 3
[2020-12-25 08:41] LABS: BUN/Creatinine Ratio 22
[2020-12-25] MEDS ORDERED: ACETAMINOPHEN 500 MG TAB PO STA (12:42)
[2020-12-25] MEDS ORDERED: IBUPROFEN 800 MG TAB PO STA (12:42)
--- NOTE | 2020-12-25 13:03 | Emergency Department Report ---
ED Chest Pain HPI - General Chief Complaint: Chest Pain Stated Complaint: CHEST PAIN AND BACK PAIN Time Seen by Provider: 12/25/20 12:21 Source: patient Mode of arrival: Ambulatory Limitations: No Limitations - History of Present Illness Initial Comments: 60-year-old -[place] female patient presents with complaints of right shoulder pain radiating into her right chest starting last night. She describes the pain as catching and a tightness. Pain occurs mainly with movement and deep inhalation per patient. She has history of hypertension, diabetes, and hyperlipidemia. Patient is a smoker. She denies any trauma to her shoulder, cough, hemoptysis, shortness of breath, abdominal pain, or fever/chills/sweats. She rates her current pain as a 7/10 in severity states she has not tried any OTC medication for symptoms. No personal or family history of heart disease per patient. She also denies any recent long travel/surgeries, history of DVT/PE/cancer, leg pain/swelling, or hormone use. - Related Data Previous Rx's Medication Instructions Recorded Last Taken Type HYDROcodone/APAP 5-325 [Burt 1 each PO Q6HR PRN #20 tablet 01/24/14 Unknown Rx 5/325] Ibuprofen [Motrin 800 MG tab] 800 mg PO Q8H #30 tablet 05/27/14 Unknown Rx Promethazine Dm (Nf) [Phenergan Dm 5 ml PO Q6H PRN #50 ml 05/27/14 Unknown Rx 6.25/15 mg 5 ml] Albuterol Mdi (or & Nicu Only) 2 puff IH QID PRN #1 inhalation 06/08/14 Unknown Rx [Proair] Azithromycin [Zithromax Z-JESSENIA] 250 mg PO DAILY #6 tablet 06/08/14 Unknown Rx Pregabalin [Lyrica] 25 mg PO BID #60 cap 06/29/15 Unknown Rx oxyCODONE /ACETAMINOPHEN [Percocet 1 tab PO Q6HR PRN #20 tablet 06/29/15 Unknown Rx 5/325] Amoxicillin/K Clav Tab [Augmentin 1 tab PO Q12HR #20 tab 05/24/16 Unknown Rx 875 mg] traMADoL [Ultram] 50 mg PO Q6HR PRN #15 tablet 08/08/17 Unknown Rx Benzonatate [Tessalon Perles] 100 mg PO Q8HR PRN #30 capsule 03/09/18 Unknown Rx predniSONE [Deltasone] 20 mg PO BID #10 tablet 03/09/18 Unknown Rx Baclofen [Lioresal] 10 mg PO TID #15 tab 08/18/18 Unknown Rx Cyclobenzaprine HCl [Flexeril 5 MG 5 mg PO TID PRN #10 tab 09/25/19 Unknown Rx TAB] Ibuprofen [Motrin 600 MG tab] 600 mg PO Q8H PRN #20 tablet 09/25/19 Unknown Rx Acetaminophen/Codeine [Tylenol 1 tab PO Q6H PRN #10 tab 03/28/20 Unknown Rx /Codeine # 3 tab] Ibuprofen [Motrin 800 MG tab] 800 mg PO Q8HR PRN #15 tablet 03/28/20 Unknown Rx Sulfamethoxazole/Trimethoprim 2 each PO BID 10 Days #40 tablet 03/28/20 Unknown Rx [Bactrim 400-80 mg Tablet] Naproxen [Naprosyn TAB] 500 mg PO BID PRN 10 Days #20 12/25/20 Unknown Rx tablet methocarbamoL [Methocarbamol] 750 mg PO TID PRN #20 tablet 12/25/20 Unknown Rx Allergies Allergy/AdvReac Type Severity Reaction Status Date / Time No Known Allergies Allergy Verified 06/29/13 19:33 Heart Score - HEART Score History: Slightly suspicious EKG: Normal Age: 45-65 Risk factors: 1-2 risk factors Troponin: < normal limit HEART Score: 2 - EKG Read Time Time EKG Completed: 07:34 EKG Read Time: 07:38 ED Review of Systems ROS: Stated complaint: CHEST PAIN AND BACK PAIN Other details as noted in HPI Constitutional: denies: chills, diaphoresis, fever, malaise, weakness Respiratory: denies: cough, shortness of breath Cardiovascular: as per HPI. denies: palpitations, edema, syncope Gastrointestinal: denies: abdominal pain, nausea, vomiting Musculoskeletal: denies: arthralgia Skin: denies: rash, change in color Neurological: denies: headache, numbness, paresthesias ED Past Medical Hx - Past Medical History Previous Medical History?: Yes Hx Hypertension: Yes Hx Diabetes: Yes (diet controlled) Additional medical history: right knee injury, bronchitis - Surgical History Past Surgical History?: Yes Hx Cholecystectomy: Yes Additional Surgical History: c section. Hystectomy - Social History Smoking Status: Current Every Day Smoker Substance Use Type: Alcohol - Medications Home Medications: Home Medications Medication Instructions Recorded Confirmed Last Taken Type HYDROcodone/APAP 5-325 [Burt 1 each PO Q6HR PRN #20 tablet 01/24/14 05/27/14 Unknown Rx 5/325] Ibuprofen [Motrin 800 MG tab] 800 mg PO Q8H #30 tablet 05/27/14 Unknown Rx Promethazine Dm (Nf) [Phenergan Dm 5 ml PO Q6H PRN #50 ml 05/27/14 Unknown Rx 6.25/15 mg 5 ml] Albuterol Mdi (or & Nicu Only) 2 puff IH QID PRN #1 inhalation 06/08/14 Unknown Rx [Proair] Azithromycin [Zithromax Z-JESSENIA] 250 mg PO DAILY #6 tablet 06/08/14 Unknown Rx Pregabalin [Lyrica] 25 mg PO BID #60 cap 06/29/15 Unknown Rx oxyCODONE /ACETAMINOPHEN [Percocet 1 tab PO Q6HR PRN #20 tablet 06/29/15 Unknown Rx 5/325] Amoxicillin/K Clav Tab [Augmentin 1 tab PO Q12HR #20 tab 05/24/16 Unknown Rx 875 mg] traMADoL [Ultram] 50 mg PO Q6HR PRN #15 tablet 08/08/17 Unknown Rx Benzonatate [Tessalon Perles] 100 mg PO Q8HR PRN #30 capsule 03/09/18 Unknown Rx predniSONE [Deltasone] 20 mg PO BID #10 tablet 03/09/18 Unknown Rx Baclofen [Lioresal] 10 mg PO TID #15 tab 08/18/18 Unknown Rx Cyclobenzaprine HCl [Flexeril 5 MG 5 mg PO TID PRN #10 tab 09/25/19 Unknown Rx TAB] Ibuprofen [Motrin 600 MG tab] 600 mg PO Q8H PRN #20 tablet 09/25/19 Unknown Rx Acetaminophen/Codeine [Tylenol 1 tab PO Q6H PRN #10 tab 03/28/20 Unknown Rx /Codeine # 3 tab] Ibuprofen [Motrin 800 MG tab] 800 mg PO Q8HR PRN #15 tablet 03/28/20 Unknown Rx Sulfamethoxazole/Trimethoprim 2 each PO BID 10 Days #40 tablet 03/28/20 Unknown Rx [Bactrim 400-80 mg Tablet] Naproxen [Naprosyn TAB] 500 mg PO BID PRN 10 Days #20 12/25/20 Unknown Rx tablet methocarbamoL [Methocarbamol] 750 mg PO TID PRN #20 tablet 12/25/20 Unknown Rx ED Physical Exam - General Limitations: No Limitations General appearance: alert, in no apparent distress - Head Head exam: Present: atraumatic, normocephalic - Eye Eye exam: Present: normal appearance - ENT ENT exam: Present: mucous membranes moist - Neck Neck exam: Present: tenderness (Mild right trapezius muscle tenderness to palpation noted without vertebral tenderness noted or obvious deformity), full ROM - Respiratory Respiratory exam: Present: normal lung sounds bilaterally, chest wall tenderness (Right upper). Absent: respiratory distress - Cardiovascular Cardiovascular Exam: Present: regular rate, normal rhythm. Absent: systolic murmur, diastolic murmur, rubs, gallop - GI/Abdominal GI/Abdominal exam: Present: soft. Absent: tenderness - Extremities Exam Extremities exam: Present: full ROM - Neurological Exam Neurological exam: Present: alert, oriented X3, normal gait - Psychiatric Psychiatric exam: Present: normal affect, normal mood - Skin Skin exam: Present: warm, dry, intact, normal color. Absent: rash ED Course Vital Signs 12/25/20 07:34 Temperature 98.0 F Pulse Rate 66 Respiratory 18 Rate Blood Pressure 126/56 O2 Sat by Pulse 98 Oximetry ED Medical Decision Making - Lab Data Result diagrams: 12/25/20 07:45 12/25/20 07:45 Lab Results 12/25/20 12/25/20 12/25/20 Range/Units 07:45 07:45 10:40 WBC 6.8 (4.5-11.0) K/mm3 RBC 4.50 (3.65-5.03) M/mm3 Hgb 13.5 (10.1-14.3) gm/dl Hct 37.6 (30.3-42.9) % MCV 84 (79-97) fl MCH 30 (28-32) pg MCHC 36 H (30-34) % RDW 12.8 L (13.2-15.2) % Plt Count 263 (140-440) K/mm3 Lymph % (Auto) 34.0 (13.4-35.0) % [place] % (Auto) 9.2 H (0.0-7.3) % Eos % (Auto) 1.2 (0.0-4.3) % Baso % (Auto) 1.1 (0.0-1.8) % Lymph # (Auto) 2.3 (1.2-5.4) K/mm3 [place] # (Auto) 0.6 (0.0-0.8) K/mm3 Eos # (Auto) 0.1 (0.0-0.4) K/mm3 Baso # (Auto) 0.1 (0.0-0.1) K/mm3 Seg Neutrophils % 54.5 (40.0-70.0) % Seg Neutrophils # 3.7 (1.8-7.7) K/mm3 Sodium 139 (137-145) mmol/L Potassium 4.1 (3.6-5.0) mmol/L Chloride 103.8 (98-107) mmol/L Carbon Dioxide 25 (22-30) mmol/L Anion Gap 14 mmol/L BUN 13 (7-17) mg/dL Creatinine 0.6 (0.6-1.2) mg/dL Estimated GFR > 60 ml/min BUN/Creatinine Ratio 22 % Glucose 134 H (65-100) mg/dL Calcium 9.5 (8.4-10.2) mg/dL Total Bilirubin 0.40 (0.1-1.2) mg/dL AST 14 (5-40) units/L ALT 12 (7-56) units/L Alkaline Phosphatase 76 (35-129) units/L Troponin T < 0.010 < 0.010 (0.00-0.029) ng/mL Total Protein 7.1 (6.3-8.2) g/dL Albumin 4.3 (3.9-5) g/dL Albumin/Globulin Ratio 1.5 % - EKG Data EKG shows normal: sinus rhythm Rate: normal - EKG Data Interpretation: normal EKG - Radiology Data Radiology results: report reviewed CHEST PA AND LATERAL VIEWS INDICATION: chest pain. COMPARISON: 06/08/2014. FINDINGS: Support devices: None. Heart: Within normal limits. Lungs/Pleura: No consolidation or effusion. There are mild increased reticular markings in both lungs which are similar to the remote prior. IMPRESSION: 1. No acute findings. - Medical Decision Making 60-year-old -[place] female patient presents with complaints of right shoulder pain radiating into her right chest starting last night. She describes the pain as catching and a tightness. Pain occurs mainly with movement and deep inhalation per patient. She has history of hypertension, diabetes, and hyperlipidemia. Patient is a smoker. She denies any trauma to her shoulder, cough, hemoptysis, shortness of breath, abdominal pain, or fever/chills/sweats. She rates her current pain as a 7/10 in severity states she has not tried any OTC medication for symptoms. No personal or family history of heart disease per patient. She also denies any recent long travel/surgeries, history of DVT/PE/cancer, leg pain/swelling, or hormone use. CBC and CMP are unremarkable. Initial and repeat troponin are normal. Heart score = 2. Well score = 0. Pain is palpable of the right upper shoulder and right chest wall. Patient given has improved while here in ED. Musculoskeletal in origin however I do recommend patient follows up with her PCP in 2 days. Pt is well appearing, her vitals are wnl. and she is stable for d/c home. Strict return precautions were discussed in detail with pt who verbalizes understanding. Critical care attestation.: If time is entered above; I have spent that time in minutes in the direct care of this critically ill patient, excluding procedure time. ED Disposition Clinical Impression: Nonspecific chest pain, Right shoulder pain Disposition: TO HOME OR SELFCARE Is pt being admited?: No Condition: Stable Instructions: Nonspecific Chest Pain, Adult, Musculoskeletal Pain Prescriptions: methocarbamoL [Methocarbamol] 750 mg PO TID PRN #20 tablet PRN Reason: muscle spasm/tightness Naproxen [Naprosyn TAB] 500 mg PO BID PRN 10 Days #20 tablet PRN Reason: pain Referrals: SUZI DA SILVA MD [Primary Care Provider] - 3-5 Days
--- NOTE | 2020-12-26 10:38 | Electrocardiograph Report ---
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
== END 2020-12-25 13:10 | disposition home or self-care (01) ==
LOC: ED 07:07
DX: R07.9 Chest pain, unspecified (principal); M25.511 Pain in right shoulder; I10 Essential (primary) hypertension; E11.8 Type 2 diabetes mellitus with unspecified complications
CPT/HCPCS: 36415; 71046; 80053; 84484; 85025; 93005; 99284

== ENCOUNTER 2021-06-06 03:15 | Observation (INO) | payer OTHER ==
[2021-06-06 06:05] LABS: Basophils # (Auto) 0.1 K/mm3 (0.0-0.1); Eosinophils # (Auto) 0.1 K/mm3 (0.0-0.4); Hematocrit 40.7 % (30.3-42.9); Hemoglobin 13.5 gm/dl (10.1-14.3); Lymphocytes # (Auto) 3.3 K/mm3 (1.2-5.4); Lymphocytes % (Auto) 36.7 % (13.4-35.0); Mean Corpuscular HGB Conc 33 % (30-34); Mean Corpuscular Volume 86 fl (79-97); Monocytes # (Auto) 0.8 K/mm3 (0.0-0.8); Monocytes % (Auto) 9.2 % (0.0-7.3); Platelet Count 294 K/mm3 (140-440); Red Blood Count 4.76 M/mm3 (3.65-5.03)
[2021-06-06 06:33] LABS: Alanine Aminotransferase 13 units/L (7-56); Albumin 4.3 g/dL (3.9-5); BUN/Creatinine Ratio 21; Blood Urea Nitrogen 15 mg/dL (7-17); Calcium 9.1 mg/dL (8.4-10.2); Hemolysis Index 4
--- NOTE | 2021-06-06 06:35 | XRay Report ---
. CHEST 2 VIEWS INDICATION: chest pain. COMPARISON: 12/25/2020 FINDINGS: SUPPORT DEVICES: None. HEART: Within normal limits. LUNGS/PLEURA: No acute air space or interstitial disease. No pneumothorax. ADDITIONAL FINDINGS: None. IMPRESSION: 1. No acute findings. Signer Name: Waqas Vann MD Signed: 06/06/2021 6:30 AM Workstation Name: [id number]
[2021-06-06] MEDS ORDERED: ONDANSETRON 4 MG/2 ML INJ IV ONE (07:39)
[2021-06-06] MEDS ORDERED: MORPHINE 4 MG/1 ML INJ IV ONE (07:39)
[2021-06-06] MEDS ORDERED: NITROGLYCERIN 0.4 MG TAB SUBL SL PRN (07:39)
--- NOTE | 2021-06-06 07:40 | Emergency Department Report ---
ED Neuro Deficit HPI - General Chief Complaint: Chest Pain Stated Complaint: CHEST PAIN Time Seen by Provider: 06/06/21 07:29 Source: patient Mode of arrival: Ambulatory Limitations: No Limitations - History of Present Illness Initial Comments: The patient was evaluated in the emergency department for symptoms described in the history of present illness. He/she was evaluated in the context of the global COVID-19 pandemic, which necessitated consideration that the patient might be at risk for infection with the virus that causes COVID-19. Instituti onal protocols and algorithms that pertain to the evaluation of patients at risk for COVID-19 are in a state of rapid change based on information released by regulatory bodies including the CDC and federal and state organizations. These policies and algorithms were followed during the patient's care in the emergency department. Please note that these policies, procedures and recommendations changed on a rapid basis. Past medical history: Obesity, hypertension, body mass index of 33.2 The patient is a 61-year-old female, who is right-hand dominant, who presents to the ER today with complaint of nontraumatic right-sided neck pain, trapezius pain, and occipital pain. Patient states his pain has been intermittent for the past day or so. She reports that she then developed central and right-sided chest pain which is not radiating, associated with shortness of breath, and sensation of unsteady gait and dizziness. No travel, surgery, immobilization, DVT/PE risk factors. No recent chiropractic manipulation, a motor vehicle accident. Patient reports that her last known well neurologic time is yesterday evening when she went to sleep, and she woke up with symptoms at 2:00 this morning. -: unknown Location: altered Presenting Symptoms: Absent: Weak/Paralyzed One Side, Sudden, Severe Headache, Blurred/Loss of Vision, Facial Droop/Numbness, Unable to Speak Clearly, Altered Mental Status Place: home Severity: moderate Improves With: none Worsens With: none On Anticoagulants: No Context: other (Patient woke up with symptoms of ataxia) - Related Data Home Medications: Home Medications Medication Instructions Recorded Confirmed Last Taken Amlodipine Bes/Olmesartan Med 1 each PO DAILY 06/06/21 06/06/21 06/05/21 19:00 [Amlodipine-Olmesartan 5-20 mg] Allergies/Adverse Reactions: Allergies Allergy/AdvReac Type Severity Reaction Status Date / Time No Known Allergies Allergy Verified 06/06/21 08:48 ED Review of Systems ROS: Stated complaint: CHEST PAIN Other details as noted in HPI Constitutional: denies: fever Eyes: denies: eye discharge, vision change ENT: denies: epistaxis Respiratory: denies: cough Cardiovascular: chest pain Gastrointestinal: denies: abdominal pain, vomiting, hematemesis, melena, hematochezia Musculoskeletal: myalgia Neurological: abnormal gait. denies: weakness Psychiatric: anxiety Hematological/Lymphatic: denies: easy bleeding ED Past Medical Hx - Past Medical History Previous Medical History?: Yes Hx Hypertension: Yes Hx Diabetes: Yes (diet controlled) Additional medical history: right knee injury, bronchitis - Surgical History Past Surgical History?: Yes Hx Cholecystectomy: Yes Additional Surgical History: c section. Hystectomy - Social History Smoking Status: Current Every Day Smoker Substance Use Type: Alcohol - Medications Home Medications: Home Medications Medication Instructions Recorded Confirmed Last Taken Type Amlodipine Bes/Olmesartan Med 1 each PO DAILY 06/06/21 06/06/21 06/05/21 19:00 History [Amlodipine-Olmesartan 5-20 mg] ED Neuro Physical Exam - General Limitations: Physical Limitation General appearance: alert, anxious, obese Suspected Stroke: Yes - Head Head exam: Present: atraumatic, normocephalic - Eye Eye exam: Present: normal appearance, other (Visual acuity intact to finger counting, color perception, reading at a close distance). Absent: nystagmus - ENT ENT exam: Present: normal exam, normal orophraynx, mucous membranes moist, normal external ear exam - Neck Neck exam: Present: normal inspection, tenderness (There is reproducible right- sided trapezius tenderness), full ROM - Respiratory Respiratory exam: Present: normal lung sounds bilaterally. Absent: respiratory distress, wheezes, rales, rhonchi, stridor, decreased breath sounds - Cardiovascular Cardiovascular Exam: Present: regular rate, bradycardia, normal heart sounds. Absent: tachycardia, irregular rhythm, systolic murmur, diastolic murmur, rubs, gallop - GI/Abdominal GI/Abdominal exam: Present: soft. Absent: distended, tenderness, guarding, rebound, rigid, pulsatile mass - Extremities Exam Extremities exam: Present: normal inspection, full ROM, other (2+ pulses noted in the bilateral upper and lower extremities. There is no palpable cord. negative Homans sign. Muscular compartments are soft. The pelvis is stable.). Absent: pedal edema, calf tenderness - Back Exam Back exam: Present: normal inspection, paraspinal tenderness. Absent: tenderness, CVA tenderness (R), CVA tenderness (L), muscle spasm, vertebral tenderness - Neurological Exam Neurological exam: Present: alert, oriented X3, abnormal gait (Positive Romberg examination. Unable to perform tandem gait. Walks with a slow gait.), motor sensory deficit (Patient has bilateral upper extremity dysmetria. Performs [id number] very slowly.), other (There is no facial droop. The tongue is midline. EOMI. 5/5 strength bilateral upper and lower extremities. Sensation is intact to light touch in the bilateral upper and lower extremities) - NIHSS Assessment Interval: Baseline 1a. Level of Consciousness: alert/keenly responsive 1b. LOC Questions: answers both correctly 1c. LOC Commands: performs tasks correctly 2. Best Gaze: normal 3. Visual: no visual loss 4. Facial Palsy: unilateral complete paralysis 5b. Motor Arm Right: no drift 5a. Motor Arm Left: no drift 6a. Motor Leg Left: no drift 6b. Motor Leg Right: no drift 7. Limb Ataxia: present 2 limbs 8. Sensory: normal 9. Best Language: no aphasia 10. Dysarthria: normal 11. Extinction/Inattention: no abnormality Total Score: 5 Stroke Severity: Moderate Stroke - Psychiatric Psychiatric exam: Present: anxious - Skin Skin exam: Present: warm, dry, intact, normal color. Absent: rash ED Course Vital Signs 06/06/21 06/06/21 06/06/21 08:38 08:39 08:55 Temperature 98.4 F 98.6 F Pulse Rate 62 60 Respiratory 16 25 H 21 Rate Blood Pressure 131/52 Blood Pressure 130/53 [Right] O2 Sat by Pulse 100 99 Oximetry - Reevaluation(s) Reevaluation #1: 06/06/21 07:46 Differential diagnosis, including but not limited to: Stroke, migraine headache, tension headache, cluster headache, occipital headache, trapezius/muscular headache, arterial dissection, arterial occlusion, GERD, gastritis, hiatal hernia, costochondritis, coronary artery disease Assessment and plan: 61-year-old female, who is right-hand dominant, who presents with wake-up symptoms including subjective feeling of ataxia. Patient woke up with symptoms and is therefore not a tPA candidate. She has reproducible muscular neck pain. She is not currently tachycardic, tachypneic or hypoxic, she denies DVT and pulmonary embolism risk factors and she is low risk by Wells criteria. There is a reproducible muscular component to her presentation. However, we will obtain a CT scan of the brain, and a CT angiogram head and neck to evaluate for occlusion, and dissection. Aortic dissection is unlikely, but CT angiogram head and neck will visualize the ascending arch of the aorta, if dissection is present. There is no abdominal pain, no back pain, and equal pulses, therefore, descending/abdominal dissection is very unlikely. Moderate risk for major adverse cardiac event as per heart score. Code stroke is called overhead. We will obtain appropriate imaging, treat her symptoms, and discussed with stroke neurology. Anticipate admission 06/06/21 08:56 CT scan of the brain negative for acute findings. CT angiogram of the neck reviewed and appreciated. Multiple incidental findings noted. Patient has no left-sided chest pain. Patient also does not describe symptoms that would be suggestive of pneumonia. Furthermore, her lung sounds are clear, and her chest x-ray is unremarkable. In addition, this patient has no dysphonia, and has not articulated any dysarthria, or any difficulty with speech, and she is saturating at 100% on room air. Emergent ENT evaluation and laryngoscopy not indicated at this time. These incidental findings will be followed up as an outpatient. CT angiogram brain pending interpretation 06/06/21 09:00 CT angiogram brain negative for acute findings. Patient was given aspirin by EMS. Admit to hospital physician, Dr. Fabian Castañeda - Consultations Consultation #1: 06/06/21 09:04 Patient seen and evaluated by stroke neurology, Dr. Kaitlyn Hathaway We also discussed the patient's history, physical, clinical impression, and plan of care. He is in agreement with the plan of care, recommendations are reviewed and appreciated - Lab Data Result diagrams: 06/06/21 05:29 06/06/21 05:29 Lab Results 06/06/21 06/06/21 06/06/21 Range/Units 05:29 05:29 07:44 WBC 9.1 (4.5-11.0) K/mm3 RBC 4.76 (3.65-5.03) M/mm3 Hgb 13.5 (10.1-14.3) gm/dl Hct 40.7 (30.3-42.9) % MCV 86 (79-97) fl MCH 28 (28-32) pg MCHC 33 (30-34) % RDW 13.0 L (13.2-15.2) % Plt Count 294 (140-440) K/mm3 Lymph % (Auto) 36.7 H (13.4-35.0) % [place] % (Auto) 9.2 H (0.0-7.3) % Eos % (Auto) 1.0 (0.0-4.3) % Baso % (Auto) 1.0 (0.0-1.8) % Lymph # (Auto) 3.3 (1.2-5.4) K/mm3 [place] # (Auto) 0.8 (0.0-0.8) K/mm3 Eos # (Auto) 0.1 (0.0-0.4) K/mm3 Baso # (Auto) 0.1 (0.0-0.1) K/mm3 Seg Neutrophils % 52.1 (40.0-70.0) % Seg Neutrophils # 4.8 (1.8-7.7) K/mm3 Sodium 143 (137-145) mmol/L Potassium 4.2 (3.6-5.0) mmol/L Chloride 105.1 (98-107) mmol/L Carbon Dioxide 24 (22-30) mmol/L Anion Gap 18 mmol/L BUN 15 (7-17) mg/dL Creatinine 0.7 (0.6-1.2) mg/dL Estimated GFR > 60 ml/min BUN/Creatinine Ratio 21 % Glucose 134 H (65-100) mg/dL POC Glucose 168 H (70-105) mg/dL Calcium 9.1 (8.4-10.2) mg/dL Total Bilirubin < 0.20 (0.1-1.2) mg/dL AST 13 (5-40) units/L ALT 13 (7-56) units/L Alkaline Phosphatase 80 (35-129) units/L Troponin T < 0.010 (0.00-0.029) ng/mL Total Protein 7.6 (6.3-8.2) g/dL Albumin 4.3 (3.9-5) g/dL Albumin/Globulin Ratio 1.3 % Vital Signs 06/06/21 06/06/21 06/06/21 08:38 08:39 08:55 Temperature 98.4 F 98.6 F Pulse Rate 62 60 Respiratory 16 25 H 21 Rate Blood Pressure 131/52 Blood Pressure 130/53 [Right] O2 Sat by Pulse 100 99 Oximetry - EKG Data -: EKG Interpreted by Ar EKG shows normal: sinus rhythm Rate: normal 06/06/21 07:42 The EKG is interpreted at 07: 42 AM by myself Sinus rhythm, 60 bpm, normal axis, normal P wave axis, intervals within normal limits, and motion artifact. T wave abnormality aVL, abnormal EKG, not a STEMI, unchanged from prior EKG from December 2019 normal - Radiology Data Radiology results: pending, report reviewed, image reviewed . CHEST 2 VIEWS INDICATION: chest pain. COMPARISON: 12/25/2020 FINDINGS: SUPPORT DEVICES: None. HEART: Within normal limits. LUNGS/PLEURA: No acute air space or interstitial disease. No pneumothorax. ADDITIONAL FINDINGS: None. IMPRESSION: 1. No acute findings. Signer Name: Waqas Vann MD Signed: 06/06/2021 5:30 AM Workstation Name: [id number] NONEN[address] SCAN OF THE BRAIN: INDICATION: CODE STROKE CALL REPORT [phone] Last known well time last night Stroke symptoms. TECHNIQUE: Routine CT head without contrast. Sagittal and coronal reformatted images were obtained. All CT scans at this location are performed using CT dose reduction for ALARA by means of automated exposure control. COMPARISON: None. FINDINGS: BRAIN / INTRACRANIAL CONTENTS: Hemorrhage:No intracranial hemorrhage; no subarachnoid hemorrhage Stroke mimics: No subdural or epidural hematoma or space taking lesion Acute/subacute territorial infarction: Frances-white matter interface: No blurring; normal Insular cortex: Normal Basal ganglia: Normal Wedge shaped parenchymal low density area: Not present Cortical sulci: Not effaced Lacunar infarctions: No acute/subacute lacunae Vasculopathy: Dense middle cerebral artery sign: Not present Internal carotid artery terminus: Normal Basilar artery:Normal Middle cerebral artery branches in the sylvian fissure (Dot sign): Normal Calcified embolus: Not present ASPECT score: 10 Ch ronic lesions:None White matter: Craniocervical junction:No significant abnormality Orbits:No significant abnormality Paranasal sinuses/mastoids:No significant abnormality Additional findings: Empty sella IMPRESSION: No acute subacute infarction This exam was performed as part of a code stroke protocol. The exam was completed at [facility] on 06/06/2021 7:15 AM. The exam was reviewed at 7:20 AM and ER physician was notified at 7:23 AM. Signer Name: Astrid Morgan MD Signed: 06/06/2021 7:23 AM Workstation Name: [employer]-NeuroNascent CTA neck without and with intravenous contrast material CLINICAL HISTORY: stroke sx 100 ml omni 350 TECHNIQUE: Following acquisition of a timing bolus 0.625 mm thick contiguous axial scans were obtained from aortic arch to the skull base during rapid bolus intravenous contrast infusion. In addition to evaluation of axial source images multiplanar reconstructions were produced and reviewed for this report. 3 plane MIP reconstructions were produced and reviewed. Contrast dose report: Omnipaque 350: 100 ml, administered intravenously All CT examinations performed at this facility utilize modulated dose reduction, iterative reconstruction or weight-based dosing, as appropriate, to obtain a radiation dose which is as low as can reasonably be achieved. FINDINGS: Thoracic aorta: Calcified atherosclerotic plaque is observed along the visualized course of the thoracic aorta. Calcified plaque is present at the origin of the left common carotid artery without associated stenosis..The origins of the great vessels have an unremarkable appearance. Brachiocephalic artery, left common carotid artery origin and left subclavian artery all have an unremarkable appearance. Right carotid artery: Calcified atherosclerotic plaque is present at the right carotid bulb extending up into the proximal R ICA. There is about a 70% stenosis at the level of the carotid bulb. Mid and distal segments of the RCCA have an u nremarkable appearance. Mid and distal cervical segments of the R ICA have an unremarkable appearance. Left carotid artery: Calcified atherosclerotic plaque is observed at the left carotid bulb extending up into the proximal R ICA. Maximum degree of stenosis is on the order of 40%. Left common carotid artery has an unremarkable appearance. Mid and distal segments of the left internal carotid artery have an unremarkable appearance. Posterior circulation: Right vertebral artery is dominant. There is no indication of stenosis along the course the V1, V2 and V3 segments of the vertebral arteries The degree of stenosis, if any, is determined utilizing NASCET like criteria. In this case there is no indication of hemodynamically significant stenosis at the carotid bifurcations or elsewhere. Abnormal soft tissue fullness is present in the supraglottic larynx with effacement of the left piriform sinus and thickening of the left aryepiglottic fold. Correlation with ENT evaluation to include direct or indirect laryngoscopy is suggested. Patchy parenchymal infiltrate is observed in the left upper lobe. No indication of lung nodule consolidating infiltrate is observed. Evaluation of the nonvascular soft tissue structures reveal no additional abnormality. There is no indication of cervical lymphadenopathy. Visualized portions of the parotid glands and the submandibular salivary glands have a normal appearance. Thyroid gland has a normal appearance. Evaluation of the cervical spine revealed no significant abnormalities. IMPRESSION: 1. 70% stenosis at the origin of the R ICA as described above. Signer Name: Morales Santana MD Signed: 06/06/2021 7:46 AM Workstation Name: [id number] FINDINGS: Internal carotid arteries: Calcified atherosclerotic plaque is seen along the course of the cavernous segments of both internal carotid arteries with extension up into the communicating segment on the right. There is no associated stenosis. Middle cerebral arteries:Normal and symmetrical M1 segments of the middle cerebral arteries are demonstrated. No abnormalities are seen on evaluation of the insular or opercular branches. Anterior cerebral arteries:Bilaterally symmetrical A1 segments are demonstrated. No abnormalities are seen along the course of the A2 segments or their visualized pericallosal branches. A prominent anterior communicating artery is identified. Vertebral arteries: Right vertebral artery is dominant. Calcified atherosclerotic plaque is observed along the proximal V4 segments of both vertebral arteries. This is associated with about a 50% stenosis on the left. No indication of significant stenosis is seen on the right. Basilar artery:. Both vertebral arteries contribute to the basilar artery origin. Basilar artery has an unremarkable appearance. Posterior cerebral arteries: A large right-sided posterior communicating artery is identified. Posterior communicating artery is not observed on the left. Arthur of Dial:Not intact. see above. Dural sinuses: Dural venous sinuses are well demonstrated on this exam. There is no evidence of dural sinus thrombosis. IMPRESSION: 1. No indication of hemodynamically significant stenosis or large vessel occlusion. Signer Name: Morales Santana MD Signed: 06/06/2021 7:53 AM Workstation Name: [id number] - Core Measures Measure Exclusions: not indicated - Thrombolytic Inclusion/Exclusion Thrombolytic Exclusion Criteria: Onset of Symptoms Unknown, Symptom Onset > 3 Hours Critical care attestation.: If time is entered above; I have spent that time in minutes in the direct care of this critically ill patient, excluding procedure time. ED Disposition Clinical Impression: Acute chest pain, Unsteady gait, Acute neck pain, Acute headache, Carotid stenosis, right, Atherosclerotic peripheral vascular disease Disposition: ADMITTED INPATIENT Is pt being admited?: Yes Does the pt Need Aspirin: No (given by ems) Condition: Good Instructions: Chest Pain (ED) Referrals: PRIMARY CARE, [Primary Care Provider] - 3-5 Days Heart Score - HEART Score History: Slightly suspicious EKG: Non-specific Age: 45-65 Risk factors: > 3 risk factors or hx of atherosclerotic disease Troponin: < normal limit HEART Score: 4 - EKG Read Time Time EKG Completed: 07:20 EKG Read Time: 07:20 - Critical Actions Critical Actions: 4-6 pts:12-16.6% risk of adverse cardiac event. Should be admitted
--- NOTE | 2021-06-06 08:18 | Emergency Department Report ---
Blank Doc - Documentation Documentation: [facility] Consult Note # Demographics Consult Type: Acute Stroke Level 2 (4.5-24 hrs) Patient Location: Emergency Room First Name: janis Last Name: tino Date of : 1960 Age: 61 Gender: Female Facility: [facility] Time of Initial Page ( Time): 06/06/2021, 07:44 Time of Return Call (Eastern Time): 06/06/2021, 07:45 # HPI History: 61 yo woman who presented with right neck pain for 3 days radiating up to her jaw, and then earlier this morning she started to have difficult walking. Balance issues started yesterday # Scores Time of exam and NIHSS ( Time): 06/06/2021, 07:52 Level of Consciousness 1a: [0] = Alert; keenly responsive LOC Questions 1b: [0] = Answers both questions correctly LOC Commands 1c: [0] = Performs both tasks correctly Best Gaze 2: [0] = Normal Visual 3: [0] = No visual loss Facial Palsy 4: [0] = Normal symmetrical movements Motor Arm Left 5a: [0] = No drift Motor Arm Right 5b: [0] = No drift Motor Leg Left 6a: [0] = No drift Motor Leg Right 6b: [0] = No drift Limb Ataxia 7: [1] = Present in one limb Sensory 8: [0] = Normal Best Language 9: [0] = No aphasia Dysarthria 10: [0] = Normal Extinction and Inattention 11: [0] = No abnormality NIHSS Total: 1 # Exam Additional Exam Findings: cannot tandem walk + rhomberg # Data Head CT: no bleed # Assessment Impression: imbalance/ataxia neck pain suspcious for dissection # Plan Thrombolytic/Intervention: NOT IV Thrombolysis or IA Intervention candidate Thrombolytic Exclusion: > 4.5 hours Intraarterial Exclusion: no large vessel occlusion (LVO) Target Blood Pressure: SBP < 220 Labs: CBC comprehensive metabolic panel lipid panel TSH ua Diagnostic Test: echo with bubble study Therapy/Evaluation: speech/swallow consultation Medication: aspirin 325 mg daily DVT Prophylaxis: heparin 5000 units subcutaneously q 12 hours Other: consult on-site neurology service for full work-up and evaluation recommendations If patient has any neurological deterioration please call me back immediately I have discussed my recommendations with the referring provider Additional Recommendations: cta head /neck and call back MRI brain wo contrast aspirin 325 mg - which will be treatment for potential cervical arterial dissection also. Disposition: admit # Logistics Telemedicine: Interactive 2 way audio and visual telecommunication technology was utilized during this visit
--- NOTE | 2021-06-06 08:28 | Cat Scan Report ---
NONENHANCED CT SCAN OF THE BRAIN: INDICATION: CODE STROKE CALL REPORT [phone] Last known well time last night Stroke symptoms. TECHNIQUE: Routine CT head without contrast. Sagittal and coronal reformatted images were obtained. A ll CT scans at this location are performed using CT dose reduction for ALARA by means of automated ex posure control. COMPARISON: None. FINDINGS: BRAIN / INTRACRANIAL CONTENTS: Hemorrhage:No intracranial hemorrhage; no subarachnoid hemorrhage Stroke mimics: No subdural or epidural hematoma or space taking lesion Acute/subacute territorial infarction: Frances-white matter interface: No blurring; normal Insular cortex: Normal Basal ganglia: Normal Wedge shaped parenchymal low density area: Not present Cortical sulci: Not effaced Lacunar infarctions: No acute/subacute lacunae Vasculopathy: Dense middle cerebral artery sign: Not present Internal carotid artery terminus: Normal Basilar artery:Normal Middle cerebral artery branches in the sylvian fissure (Dot sign): Normal Calcified embolus: Not present ASPECT score: 10 Chronic lesions:None White matter: Craniocervical junction:No significant abnormality Orbits:No significant abnormality Paranasal sinuses/mastoids:No significant abnormality Additional findings: Empty sella IMPRESSION: No acute subacute infarction This exam was performed as part of a code stroke protocol. The exam was completed at [facility] on 06/06/2021 7:15 AM. The exam was reviewed at 7:20 AM and ER physician was notified at 7:23 AM. Signer Name: Astrid Morgan MD Signed: 06/06/2021 8:23 AM Workstation Name: [id number]
--- NOTE | 2021-06-06 08:50 | Cat Scan Report ---
CTA neck without and with intravenous contrast material CLINICAL HISTORY: stroke sx 100 ml omni 350 TECHNIQUE: Following acquisition of a timing bolus 0.625 mm thick contiguous axial scans were obtained from aort ic arch to the skull base during rapid bolus intravenous contrast infusion. In addition to evaluation of axial source images multiplanar reconstructions were produced and reviewed for this report. 3 kota ne MIP reconstructions were produced and reviewed. Contrast dose report: Omnipaque 350: 100 ml, administered intravenously All CT examinations performed at this facility utilize modulated dose reduction, iterative reconstruc tion or weight-based dosing, as appropriate, to obtain a radiation dose which is as low as can reason ably be achieved. FINDINGS: Thoracic aorta: Calcified atherosclerotic plaque is observed along the visualized course of the thora cic aorta. Calcified plaque is present at the origin of the left common carotid artery without associ ated stenosis..The origins of the great vessels have an unremarkable appearance. Brachiocephalic erica ry, left common carotid artery origin and left subclavian artery all have an unremarkable appearance. Right carotid artery: Calcified atherosclerotic plaque is present at the right carotid bulb extending up into the proximal R ICA. There is about a 70% stenosis at the level of the carotid bulb. Mid and distal segments of the RCCA have an unremarkable appearance. Mid and distal cervical segments of the R ICA have an unremarkable appearance. Left carotid artery: Calcified atherosclerotic plaque is observed at the left carotid bulb extending up into the proximal R ICA. Maximum degree of stenosis is on the order of 40%. Left common carotid ar kevin has an unremarkable appearance. Mid and distal segments of the left internal carotid artery have an unremarkable appearance. Posterior circulation: Right vertebral artery is dominant. There is no indication of stenosis along t he course the V1, V2 and V3 segments of the vertebral arteries The degree of stenosis, if any, is determined utilizing NASCET like criteria. In this case there is no indication of hemodynamically significant stenosis at the carotid bifurcations or elsewhere. Abnormal soft tissue fullness is present in the supraglottic larynx with effacement of the left pirif orm sinus and thickening of the left aryepiglottic fold. Correlation with ENT evaluation to include d irect or indirect laryngoscopy is suggested. Patchy parenchymal infiltrate is observed in the left upper lobe. No indication of lung nodule consol idating infiltrate is observed. Evaluation of the nonvascular soft tissue structures reveal no additional abnormality. There is no in dication of cervical lymphadenopathy. Visualized portions of the parotid glands and the submandibular salivary glands have a normal appearance. Thyroid gland has a normal appearance. Evaluation of the cervical spine revealed no significant abnormalities. IMPRESSION: 1. 70% stenosis at the origin of the R ICA as described above. Signer Name: Morales Santana MD Signed: 06/06/2021 8:46 AM Workstation Name: [id number]
--- NOTE | 2021-06-06 08:57 | Cat Scan Report ---
CTA head with intravenous contrast CLINICAL HISTORY: stroke sx 100 ml omni 350 TECHNIQUE: 0.625 mm thick contiguous axial scans were obtained from the skull base to the skull vertex during r apid bolus administration of intravenous contrast material. Multiplanar reconstructions were produced in the coronal and sagittal planes. In addition 3 plane MIP instructions were produced and reviewed for this report. The axial source images and reconstructed images were reviewed for this report. CONTRAST DOSE REPORT: Omnipaque 350: 100 ml administered intravenously. All CT scans at this location are performed using CT dose reduction for ALARA by means of automated e xposure control. FINDINGS: Internal carotid arteries: Calcified atherosclerotic plaque is seen along the course of the cavernous segments of both internal carotid arteries with extension up into the communicating segment on the r ight. There is no associated stenosis. Middle cerebral arteries:Normal and symmetrical M1 segments of the middle cerebral arteries are demon strated. No abnormalities are seen on evaluation of the insular or opercular branches. Anterior cerebral arteries:Bilaterally symmetrical A1 segments are demonstrated. No abnormalities are seen along the course of the A2 segments or their visualized pericallosal branches. A prominent ante rior communicating artery is identified. Vertebral arteries: Right vertebral artery is dominant. Calcified atherosclerotic plaque is observed along the proximal V4 segments of both vertebral arteries. This is associated with about a 50% stenos is on the left. No indication of significant stenosis is seen on the right. Basilar artery:. Both vertebral arteries contribute to the basilar artery origin. Basilar artery has an unremarkable appearance. Posterior cerebral arteries: A large right-sided posterior communicating artery is identified. [employer] ior communicating artery is not observed on the left. [place] of Dial:Not intact. see above. Dural sinuses: Dural venous sinuses are well demonstrated on this exam. There is no evidence of dural sinus thrombosis. IMPRESSION: 1. No indication of hemodynamically significant stenosis or large vessel occlusion. Signer Name: Morales Santana MD Signed: 06/06/2021 8:53 AM Workstation Name: [id number]
[2021-06-06] MEDS ORDERED: ONDANSETRON 4 MG/2 ML INJ IV PRN (09:30)
[2021-06-06] MEDS ORDERED: ACETAMINOPHEN 325 MG TAB PO PRN (09:30)
--- NOTE | 2021-06-06 10:06 | Electrocardiograph Report ---
[facility] Test Date: 2021-06-06 Test Time: 05:20:54 Pat Name: TERESITA WISDOM Department: Room: Gender: F Presentation Designer: YOUSUF : 1960 Requested By: RXOANNA CHARLES Order Number: [id number] Reading MD: Mark Rosado Measurements Intervals Jordan Rate: 60 P: 27 CT: 196 QRS: 62 QRSD: 83 T: 80 QT: 428 QTc: 427 Interpretive Statements Sinus rhythm Compared to ECG 12/25/2020 07:24:55 No significant changes Electronically Signed On 06-06-2021 10:06:32 EST by Mark Rosado
[2021-06-06 11:05] LABS: Chol/HDL Ratio 2.73 %
[2021-06-06] MEDS: MORPHINE 4 MG/1 ML INJ IV PRN ×2 (17:58→22:22)
--- NOTE | 2021-06-06 18:53 | History and Physical Report ---
History of Present Illness Date of examination: 06/06/21 Date of admission: 06/06/21 09:06 Chief complaint: Right-sided weakness History of present illness: Patient is a 61-year-old female with past medical history of hypertension, hyperlipidemia, and osteoarthritis of bilateral knees who presents with right- sided weakness that initially started as right-sided neck pain that spread to her upper back and was complicated by reproducible, central upper chest pain. The patient describes having right-sided neck pain that she initially thought was secondary to muscle strain or "sleeping the wrong way". However the pain then traveled to the back of her neck and was accompanied by moderate upper central chest pain. This was accompanied by nausea without vomiting. The patient denies any history of a stroke, recent travel, recent immobilization, hormone therapy, fevers, chills, tingling, numbness, abdominal pain, or sick contacts. Due to the acute change in her symptoms, the patient asked her to call EMS. Upon evaluation in the ED, the patient was found to have ataxia of her right upper extremity. A code stroke was called, and the patient underwent a CT head noncontrast that was found to be negative.CTA head and neck was positive for 70% stenosis at the origin of the right ICA. The mid and distal segments of the right ICA were unremarkable. Teleneurology was consulted, and the patient was recommended for admission for stroke work-up. Past History Past Medical History: hypertension, hyperlipidemia Past Surgical History: cholecystectomy, hysterectomy Social history: , lives with family, smoking, full code Family history: no significant family history Medications and Allergies Allergies Allergy/AdvReac Type Severity Reaction Status Date / Time No Known Allergies Allergy Verified 06/06/21 08:48 Home Medications Medication Instructions Recorded Confirmed Last Taken Type Amlodipine Bes/Olmesartan Med 1 each PO DAILY 06/06/21 06/06/21 06/05/21 19:00 History [Amlodipine-Olmesartan 5-20 mg] Active Meds: Active Medications Acetaminophen (Acetaminophen 325 Mg Tab) 650 mg PO Q4H PRN PRN Reason: Pain MILD(1-3)/Fever >100.5/IRWIN Morphine Sulfate (Morphine 4 Mg/1 Ml Inj) 2 mg IV Q4H PRN PRN Reason: Pain , Severe (7-10) Last Admin: 06/06/21 17:58 Dose: 2 mg Nitroglycerin (Nitroglycerin 0.4 Mg Tab Subl) 0.4 mg SL .Q5MIN PRN PRN Reason: Chest Pain Ondansetron HCl (Ondansetron 4 Mg/2 Ml Inj) 4 mg IV Q8H PRN PRN Reason: Nausea And Vomiting Last Admin: 06/06/21 17:58 Dose: 4 mg Oxycodone/Acetaminophen (Oxycodone /Acetaminophen 5-325mg Tab) 1 tab PO Q6H PRN PRN Reason: Pain, Moderate (4-6) Sodium Chloride (Sodium Chloride 0.9% 10 Ml Flush Syringe) 10 ml IV BID [facility]STER Last Admin: 06/06/21 09:46 Dose: 10 ml Sodium Chloride (Sodium Chloride 0.9% 10 Ml Flush Syringe) 10 ml IV PRN PRN PRN Reason: LINE FLUSH Last Admin: 06/06/21 17:58 Dose: 10 ml Review of Systems All systems: negative Cardiovascular: chest pain Gastrointestinal: nausea Exam - Constitutional Vitals: Temp Pulse Resp BP Pulse Ox 98.6 F 52 L 16 118/45 96 06/06/21 08:39 06/06/21 17:01 06/06/21 17:01 06/06/21 17:01 06/06/21 17:01 General appearance: Present: no acute distress, well-nourished, obese - EENT Eyes: Present: PERRL ENT: hearing intact, clear oral mucosa, dentition normal - Neck Neck: Present: supple, normal ROM - Respiratory Respiratory effort: normal Respiratory: bilateral: CTA - Cardiovascular Rhythm: regular Heart Sounds: Present: S1 & S2 - Extremities Extremities: no ischemia, pulses intact, pulses symmetrical, No edema, normal temperature, normal color Peripheral Pulses: within normal limits - Abdominal General gastrointestinal: Present: soft, non-tender, non-distended, normal bowel sounds Female genitourinary: Present: deferred - Rectal Rectal Exam: deferred - Integumentary Integumentary: Present: clear, warm, dry - Musculoskeletal Musculoskeletal: right sided weakness (In her right upper extremity) - Psychiatric Psychiatric: appropriate mood/affect, intact judgment & insight, memory intact, cooperative - Neurologic Neurologic: CNII-XII intact, moves all extremities - Allied Health Allied health notes reviewed: nursing HEART Score - HEART Score EKG: Non-specific Age: 45-65 Risk factors: > 3 risk factors or hx of atherosclerotic disease Troponin: Troponin T < 0.010 ng/mL (0.00-0.029) 06/06/21 05:29 Troponin: < normal limit - Critical Actions Critical Actions: 4-6 pts:12-16.6% risk of adverse cardiac event. Should be admitted Results - Labs CBC & Chem 7: 06/06/21 05:29 06/06/21 05:29 Labs: Laboratory Last Values WBC 9.1 K/mm3 (4.5-11.0) 06/06/21 05:29 RBC 4.76 M/mm3 (3.65-5.03) 06/06/21 05:29 Hgb 13.5 gm/dl (10.1-14.3) 06/06/21 05:29 Hct 40.7 % (30.3-42.9) 06/06/21 05:29 MCV 86 fl (79-97) 06/06/21 05:29 MCH 28 pg (28-32) 06/06/21 05:29 MCHC 33 % (30-34) 06/06/21 05:29 RDW 13.0 % (13.2-15.2) L 06/06/21 05:29 Plt Count 294 K/mm3 (140-440) 06/06/21 05:29 Lymph % (Auto) 36.7 % (13.4-35.0) H 06/06/21 05:29 [facility] % (Auto) 9.2 % (0.0-7.3) H 06/06/21 05:29 Eos % (Auto) 1.0 % (0.0-4.3) 06/06/21 05:29 Baso % (Auto) 1.0 % (0.0-1.8) 06/06/21 05:29 Lymph # (Auto) 3.3 K/mm3 (1.2-5.4) 06/06/21 05:29 [facility] # (Auto) 0.8 K/mm3 (0.0-0.8) 06/06/21 05:29 Eos # (Auto) 0.1 K/mm3 (0.0-0.4) 06/06/21 05:29 Baso # (Auto) 0.1 K/mm3 (0.0-0.1) 06/06/21 05:29 Seg Neutrophils % 52.1 % (40.0-70.0) 06/06/21 05:29 Seg Neutrophils # 4.8 K/mm3 (1.8-7.7) 06/06/21 05:29 Sodium 143 mmol/L (137-145) 06/06/21 05:29 Potassium 4.2 mmol/L (3.6-5.0) 06/06/21 05:29 Chloride 105.1 mmol/L (98-107) 06/06/21 05:29 Carbon Dioxide 24 mmol/L (22-30) 06/06/21 05:29 Anion Gap 18 mmol/L 06/06/21 05:29 BUN 15 mg/dL (7-17) 06/06/21 05:29 Creatinine 0.7 mg/dL (0.6-1.2) 06/06/21 05:29 Estimated GFR > 60 ml/min 06/06/21 05:29 BUN/Creatinine Ratio 21 % 06/06/21 05:29 Glucose 134 mg/dL (65-100) H 06/06/21 05:29 POC Glucose 72 mg/dL (70-105) 06/06/21 17:52 Hemoglobin A1c 6.7 % (4-6) H 06/06/21 09:24 Calcium 9.1 mg/dL (8.4-10.2) 06/06/21 05:29 Total Bilirubin < 0.20 mg/dL (0.1-1.2) 06/06/21 05:29 AST 13 units/L (5-40) 06/06/21 05:29 ALT 13 units/L (7-56) 06/06/21 05:29 Alkaline Phosphatase 80 units/L (35-129) 06/06/21 05:29 Troponin T < 0.010 ng/mL (0.00-0.029) 06/06/21 05:29 Total Protein 7.6 g/dL (6.3-8.2) 06/06/21 05:29 Albumin 4.3 g/dL (3.9-5) 06/06/21 05:29 Albumin/Globulin Ratio 1.3 % 06/06/21 05:29 Triglycerides 111 mg/dL (2-149) 06/06/21 09:24 Cholesterol 145 mg/dL (50-199) 06/06/21 09:24 LDL Cholesterol Direct 74 mg/dL (50-130) 06/06/21 09:24 HDL Cholesterol 53 mg/dL (40-59) 06/06/21 09:24 Cholesterol/HDL Ratio 2.73 % 06/06/21 09:24 Assessment and Plan Assessment and plan: Patient is a 61-year-old female past medical history of hypertension, hyperlipidemia and bilateral osteoarthritis of her knees who presented with right-sided ataxia and is undergoing stroke work-up. #Possible CVA CT head noncontrast within normal limits CTA head/neck revealing 70% stenosis of right ICA. Pending MRI head with and without to evaluate for stroke. Neurology consulted; pending recs Pending lipid panel, hemoglobin A1c. Allowing permissive hypertension x24 hours. Consulted physical therapy, Occupational Therapy, and speech therapy in the setting of stroke work-up. Starting aspirin 325 mg daily. Received first dose in the ED upon presentation. Starting atorvastatin 40 mg daily. Can discontinue if patient is found to be negative for stroke. Continue to monitor. #Hypertension #Hyperlipidemia - home medications: Amlodipine best/olmesartan 5-20 mg - current medications: Currently holding to allow for permissive hypertension x24 hours - SBP goal <160 and DBP goal <90 while inpatient - continue to monitor #Obesity #Weight loss counseling #Exercise counseling - BMI 33.2 - Counseled patient on the importance of weight loss, incorporating exercise, and dietary changes (lean meats, fresh fruits and vegetables, and water intake). Patient expresses understanding. - Time: +15 min #Advanced care planning -Disease education conducted, care plan discussed, diagnoses discussed, prognosis discussed, and patient acknowledges understanding with care plan -Time: +30 min Advance Directives: No VTE prophylaxis?: Chemical Plan of care discussed with patient/family: Yes
[2021-06-06] MEDS: HEPARIN 5,000 UNIT/1 ML VIAL SUB-Q SCH (22:18)
[2021-06-06] MEDS: INSULIN LISPRO 100 UNIT/ML SUB-Q SCH (22:21)
[2021-06-07] MEDS: MORPHINE 4 MG/1 ML INJ IV PRN (05:02)
[2021-06-07] MEDS: HEPARIN 5,000 UNIT/1 ML VIAL SUB-Q SCH ×2 (06:05→15:42)
[2021-06-07 06:27] LABS: Basophils % (Auto) 0.5 % (0.0-1.8); Eosinophils # (Auto) 0.1 K/mm3 (0.0-0.4); Eosinophils % (Auto) 1.1 % (0.0-4.3); Hematocrit 40.7 % (30.3-42.9); Hemoglobin 13.2 gm/dl (10.1-14.3); Lymphocytes # (Auto) 2.5 K/mm3 (1.2-5.4); Lymphocytes % (Auto) 39.6 % (13.4-35.0); Mean Corpuscular HGB Conc 33 % (30-34); Mean Corpuscular Volume 85 fl (79-97); Monocytes # (Auto) 0.6 K/mm3 (0.0-0.8); Platelet Count 275 K/mm3 (140-440); Red Blood Count 4.81 M/mm3 (3.65-5.03); Red Cell Distribution Width 13.2 % (13.2-15.2)
[2021-06-07 06:34] LABS: Blood Urea Nitrogen 11 mg/dL (7-17); Calcium 9.3 mg/dL (8.4-10.2); Hemolysis Index 12
[2021-06-07 06:35] LABS: BUN/Creatinine Ratio 16
--- NOTE | 2021-06-07 08:37 | Consultation ---
History of Present Illness Consult date: 06/07/21 Reason for Consult: neck pain History of present illness: Right-sided weakness History of present illness: Patient is a 61-year-old female with past medical history of hypertension, hyperlipidemia, and osteoarthritis of bilateral knees who presents with right- sided weakness ??that initially started as right-sided neck pain that spread to her upper back and was complicated by reproducible, central upper chest pain. The patient describes having right-sided neck pain that she initially thought was secondary to muscle strain or "sleeping the wrong way". However the pain then traveled to the back of her neck and was accompanied by moderate upper central chest pain. This was accompanied by nausea without vomiting. The patient denies any history of a stroke, recent travel, recent immobilization, hormone therapy, fevers, chills, tingling, numbness, abdominal pain, or sick contacts. Due to the acute change in her symptoms, the patient asked her to call EMS. Upon evaluation in the ED, the patient was found to have ataxia of her right upper extremity. A code stroke was called, and the patient underwent a CT head noncontrast that was found to be negative.CTA head and neck was positive for 70% stenosis at the origin of the right ICA. The mid and distal segments of the right ICA were unremarkable. Teleneurology was consulted, and the patient was recommended for admission for stroke work-up. today she continues with neck pain increase with head turning either way no neck rigidity , kernick sign is negative no hx of trauma , no fever MRI brain today is unremarkable NIH#0 Past History Past Medical History: hypertension, hyperlipidemia Past Surgical History: cholecystectomy, hysterectomy Social history: , lives with family, smoking, full code Family history: no significant family history Medications and Allergies Allergies Allergy/AdvReac Type Severity Reaction Status Date / Time No Known Allergies Allergy Verified 06/06/21 08:48 Home Medications Medication Instructions Recorded Confirmed Last Taken Type Amlodipine Bes/Olmesartan Med 1 each PO DAILY 06/06/21 06/06/21 06/05/21 19:00 History [Amlodipine-Olmesartan 5-20 mg] Active Meds: Active Medications Acetaminophen (Acetaminophen 325 Mg Tab) 650 mg PO Q4H PRN PRN Reason: Pain MILD(1-3)/Fever >100.5/IRWIN Morphine Sulfate (Morphine 4 Mg/1 Ml Inj) 2 mg IV Q4H PRN PRN Reason: Pain , Severe (7-10) Last Admin: 06/06/21 17:58 Dose: 2 mg Nitroglycerin (Nitroglycerin 0.4 Mg Tab Subl) 0.4 mg SL .Q5MIN PRN PRN Reason: Chest Pain Ondansetron HCl (Ondansetron 4 Mg/2 Ml Inj) 4 mg IV Q8H PRN PRN Reason: Nausea And Vomiting Last Admin: 06/06/21 17:58 Dose: 4 mg Oxycodone/Acetaminophen (Oxycodone /Acetaminophen 5-325mg Tab) 1 tab PO Q6H PRN PRN Reason: Pain, Moderate (4-6) Sodium Chloride (Sodium Chloride 0.9% 10 Ml Flush Syringe) 10 ml IV BID [facility] Last Admin: 06/06/21 09:46 Dose: 10 ml Sodium Chloride (Sodium Chloride 0.9% 10 Ml Flush Syringe) 10 ml IV PRN PRN PRN Reason: LINE FLUSH Last Admin: 06/06/21 17:58 Dose: 10 ml Review of Systems All systems: negative Cardiovascular: chest pain Gastrointestinal: nausea Past History Past Medical History: hypertension, hyperlipidemia Past Surgical History: cholecystectomy, hysterectomy Social history: , lives with family, smoking, full code Family history: no significant family history Medications and Allergies Allergies Allergy/AdvReac Type Severity Reaction Status Date / Time No Known Allergies Allergy Verified 06/06/21 08:48 Home Medications Medication Instructions Recorded Confirmed Last Taken Type Amlodipine Bes/Olmesartan Med 1 each PO DAILY 06/06/21 06/06/21 06/05/21 19:00 History [Amlodipine-Olmesartan 5-20 mg] Active Meds: Active Medications Acetaminophen (Acetaminophen 325 Mg Tab) 650 mg PO Q4H PRN PRN Reason: Pain MILD(1-3)/Fever >100.5/IRWIN Aspirin (Aspirin 325 Mg Tab) 325 mg PO QDAY [facility] Atorvastatin Calcium (Atorvastatin 40 Mg Tab) 40 mg PO QHS [facility] Last Admin: 06/06/21 22:07 Dose: Not Given Heparin Sodium (Porcine) (Heparin 5,000 Unit/1 Ml Vial) 5,000 unit SUB-Q Q8HR [facility] Last Admin: 06/07/21 06:05 Dose: 5,000 unit Insulin Human Lispro (Insulin Lispro 100 Unit/Ml) 0 unit SUB-Q ACHS [facility]; Protocol Last Admin: 06/06/21 22:21 Dose: Not Given Morphine Sulfate (Morphine 4 Mg/1 Ml Inj) 2 mg IV Q4H PRN PRN Reason: Pain , Severe (7-10) Last Admin: 06/07/21 05:02 Dose: 2 mg Nitroglycerin (Nitroglycerin 0.4 Mg Tab Subl) 0.4 mg SL .Q5MIN PRN PRN Reason: Chest Pain Ondansetron HCl (Ondansetron 4 Mg/2 Ml Inj) 4 mg IV Q8H PRN PRN Reason: Nausea And Vomiting Last Admin: 06/06/21 17:58 Dose: 4 mg Oxycodone/Acetaminophen (Oxycodone /Acetaminophen 5-325mg Tab) 1 tab PO Q6H PRN PRN Reason: Pain, Moderate (4-6) Sodium Chloride (Sodium Chloride 0.9% 10 Ml Flush Syringe) 10 ml IV BID [facility] Last Admin: 06/06/21 22:19 Dose: 10 ml Sodium Chloride (Sodium Chloride 0.9% 10 Ml Flush Syringe) 10 ml IV PRN PRN PRN Reason: LINE FLUSH Last Admin: 06/06/21 17:58 Dose: 10 ml Physical Examination - Vital Signs Vital Signs: Vital Signs Temp Pulse Resp BP Pulse Ox 98.4 F 62 16 130/53 100 06/06/21 08:38 06/06/21 08:38 06/06/21 08:38 06/06/21 08:38 06/06/21 08:38 - Constitutional General appearance: uncomfortable - EENT EENT: Present: PERRL, mucous membranes moist - Respiratory Respiratory: Present: chest non-tender, lungs clear, rhonchi - Cardiovascular Cardiovascular: Present: regular rate, normal S1, normal S2 Extremities: Present: no peripheral edema bilatateraly, no clubbing, cyanosis - Gastrointestinal Gastrointestinal: Present: normoactive bowel sounds - Integumentary Integumentary: Present: normal - Neurologic Cranial nerve examination: PERRL, EOMI, intact Speech examination: intact Sensorimotor examination: intact Detailed motor examination: grossly full strength in - Musculoskeletal Musculoskeletal: Present: other (neck tenderness with difficulty turning head right or left no neck rigidity no kernick sign, gait not done , no sign of dysmetria in upper or lower .) - Level of Consciousness 1a. Level of Consciousness: alert/keenly responsive - LOC Questions 1b. LOC Questions: answers both correctly - LOC Command 1c. LOC Commands: performs tasks correctly - Best Gaze 2. Best Gaze: normal - Visual 3. Visual: no visual loss - Facial Palsy 4. Facial Palsy: normal symmetrical movement - Motor Arm 5a. Motor Arm Left: no drift 5b. Motor Arm Right: no drift - Motor Leg 6a. Motor Leg Left: no drift 6b. Motor Leg Right: no drift - Limb Ataxia 7. Limb Ataxia: absent - Sensory 8. Sensory: normal - Best Language 9. Best Language: no aphasia - Dysarthria 10. Dysarthria: normal - Extinction and Inattention 11. Extinction/Inattention: no abnormality - Scoring Total Score: 0 Stroke Severity: No Stroke Symptoms Results - Laboratory Findings CBC and BMP: 06/07/21 06:07 06/07/21 06:07 Abnormal Lab Findings: Abnormal Labs 06/06/21 06/06/21 06/06/21 05:29 05:29 07:44 RDW 13.0 L Lymph % (Auto) 36.7 H [place] % (Auto) 9.2 H Glucose 134 H POC Glucose 168 H Hemoglobin A1c 06/06/21 06/07/21 09:24 06:07 RDW Lymph % (Auto) 39.6 H [place] % (Auto) 10.0 H Glucose POC Glucose Hemoglobin A1c 6.7 H Assessment and Plan Assessment and Plan Assessment and plan: Patient is a 61-year-old female past medical history of hypertension, hyperlipidemia and bilateral osteoarthritis of her knees who presented with right-sided ataxia and is undergoing stroke work-up. #neck stiffness with normal neurological exam -limited neck movment both right and left -NIH#0 -No weakness . kernick sign is negative -Ct brain and CTA brain and neck are remarkable for R.ICA 70% stenosis { Incedental finding} -Brain MRI is unremarkable -echo is pending -staretd on ASA 325 mg and Lipitor -LDL and A1C are pending -MRI Cervical spine -lidoderm patch appply on neckQ24 hours - vascualr surgery to see # Possible underlying anxiety add to her problem #Hypertension #Hyperlipidemia Advance Directives: No VTE prophylaxis?: Chemical Plan of care discussed with patient/family: Yes will follow as needed
[2021-06-07] MEDS ORDERED: ASPIRIN 325 MG TAB PO SCH (10:00)
[2021-06-07] MEDS: INSULIN LISPRO 100 UNIT/ML SUB-Q SCH ×4 (10:07→23:38)
--- NOTE | 2021-06-07 11:06 | Magnetic Resonance Report ---
MRI BRAIN 06/07/2021 INDICATION / CLINICAL INFORMATION: Stroke workup. TECHNIQUE: Multiplanar, multisequence MR images of the brain were obtained. COMPARISON: None available. FINDINGS: BRAIN / INTRACRANIAL CONTENTS: Unenhanced and enhanced MR images of the brain demonstrate no evidence of acute abnormality. Ventricles and sulci are normal in size and shape. There is no evidence of acute ischemic injury, hemorrhage, or mass. There are no abnormal extra-axial fluid collections. Postcontrast images demonstrate no abnormal contrast enhancement. EXTRACRANIAL: Unremarkable CRANIOCERVICAL JUNCTION: No significant abnormality. VASCULAR FLOW-VOIDS: No significant abnormality. IMPRESSION: Negative unenhanced and enhanced MRI of the brain. Signer Name: Bal James MD Signed: 06/07/2021 11:01 AM Workstation Name: [id number]
[2021-06-07] MEDS: oxyCODONE /ACETAMINOPHEN 5-325MG TAB PO PRN ×2 (12:21→18:30)
--- NOTE | 2021-06-07 13:25 | Discharge Summary ---
Providers - Providers Date of Admission: 06/06/21 09:06 Date of discharge: 06/07/21 Attending physician: CHARO BLANCO MD 06/06/21 09:06 Consult to Physician [CONS] Routine Comment: Consulting Provider: CHARLENE CARLOS Physician Instructions: Reason For Exam: Concern for CVA 06/06/21 09:09 Occupational Therapy Evaluate and Treat [CONS] Routine Comment: Reason For Exam: Stroke workup Physical Therapy Evaluation and Treat [CONS] Routine Comment: Reason For Exam: Stroke workup Speech Therapy Evaluation and Treat [CONS] Routine Reason For Exam: Stroke workup Primary care physician: [employer]ERSON[employer] ASSISTANT Hospitalization Reason for admission: Ataxia Condition: Good Pertinent studies: Reviewed. Procedures: None. Hospital course: Patient is a 61-year-old female past medical history of hypertension, hyperlipidemia and bilateral osteoarthritis of her knees who presented with right-sided ataxia and is undergoing stroke work-up. Patient underwent a CT head noncontrast that was unremarkable. 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 An MRI head with and without contrast was unremarkable for any acute stroke. Physical therapy, Occupational Therapy, and speech therapy were consulted as stroke work-up protocol. Physical therapy recommended outpatient PT. Speech therapy cleared the patient for oral intake as she has low risk for aspiration. The patient will be discharged home with aspirin 81 mg daily, atorvastatin 40 mg daily, and educated on the importance of lifestyle changes (weight loss, dietary changes, and incorporating exercise). The patient expresses understanding. Patient is medically clear for discharge. Disposition: 01 HOME / SELF CARE / HOMELESS Final Discharge Diagnosis (Prints w/discharge instructions): Ataxia, hy pertension, hyperlipidemia, obesity Time spent for discharge: 45 min Core Measure Documentation - Palliative Care Palliative Care/ Comfort Measures: Not Applicable - Core Measures Any of the following diagnoses?: none Exam - Constitutional Vitals: Temp Pulse Resp BP Pulse Ox 98.1 F 57 L 16 117/60 95 06/06/21 19:45 06/07/21 07:01 06/07/21 07:01 06/07/21 07:01 06/07/21 07:01 General appearance: Present: no acute distress, well-nourished, obese - EENT Eyes: Present: PERRL, EOM intact ENT: hearing intact, clear oral mucosa, dentition normal - Neck Neck: Present: supple, normal ROM - Respiratory Respiratory effort: normal Respiratory: bilateral: CTA - Cardiovascular Rhythm: regular Heart Sounds: Present: S1 & S2 - Extremities Extremities: no ischemia, pulses intact, pulses symmetrical, No edema, normal temperature, normal color, Full ROM Peripheral Pulses: within normal limits - Abdominal General gastrointestinal: Present: soft, non-tender, non-distended, normal bowel sounds Female genitourinary: Present: deferred - Rectal Rectal Exam: deferred - Integumentary Integumentary: Present: clear, warm, dry - Musculoskeletal Musculoskeletal: right sided weakness (4/5 strength of right upper extremity) - Psychiatric Psychiatric: appropriate mood/affect, intact judgment & insight, memory intact, cooperative - Neurologic Neurologic: CNII-XII intact, moves all extremities - Allied Health Allied health notes reviewed: nursing Plan Activity: advance as tolerated Diet: low salt Additional Instructions: Patient is a 61-year-old female past medical history of hypertension, hyperlipidemia and bilateral osteoarthritis of her knees who presented with right-sided ataxia and is undergoing stroke work-up. Patient underwent a CT head noncontrast that was unremarkable. 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 An MRI head with and without contrast was unremarkable for any acute stroke. Physical therapy, Occupational Therapy, and speech therapy were consulted as stroke work-up protocol. Physical therapy recommended outpatient PT. Speech therapy cleared the patient for oral intake as she has low risk for aspiration. The patient will be discharged home with aspirin 81 mg daily, atorvastatin 40 mg daily, and educated on the importance of lifestyle changes (weight loss, dietary changes, and incorporating exercise). The patient expresses understanding. Patient is medically clear for discharge. Care Plan Goals: Patient is medically cleared for discharge Assessment: Patient is a 61-year-old female past medical history of hypertension, hyperlipidemia and bilateral osteoarthritis of her knees who presented with right-sided ataxia and is undergoing stroke work-up. Patient underwent a CT head noncontrast that was unremarkable. 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 An MRI head with and without contrast was unremarkable for any acute stroke. Physical therapy, Occupational Therapy, and speech therapy were consulted as stroke work-up protocol. Physical therapy recommended outpatient PT. Speech therapy cleared the patient for oral intake as she has low risk for aspiration. The patient will be discharged home with as pirin 81 mg daily, atorvastatin 40 mg daily, and educated on the importance of lifestyle changes (weight loss, dietary changes, and incorporating exercise). The patient expresses understanding. Patient is medically clear for discharge. Follow up with: JOSE ROTH MD [Staff Physician] - 14 Days (Outpatient ischemia workup.) PRIMARY CARE, [Primary Care Provider] - 3-5 Days Prescriptions: AtorvaSTATin [Lipitor] 40 mg PO QHS #30 tablet Aspirin [Aspirin BABY CHEW TAB] 81 mg PO QDAY #30 tab.chew
[2021-06-07] MEDS ORDERED: LIDOCAINE 5% 1 EACH PATCH TD SCH (14:00)
[2021-06-08] MEDS: HEPARIN 5,000 UNIT/1 ML VIAL SUB-Q SCH (00:13)
[2021-06-08] MEDS: oxyCODONE /ACETAMINOPHEN 5-325MG TAB PO PRN (01:26)
[2021-06-08 09:05] VITALS: BP 152/54
== END 2021-06-08 09:03 | disposition home or self-care (01) ==
LOC: ED 03:15 → 4A 09:06 → 3A 06-07 06:41
PROVIDERS: ADMIT Student in an Organized Health Care Education/Training Program; ATTEND Student in an Organized Health Care Education/Training Program
DX: M62.81 Muscle weakness (generalized) (principal); Z20.822 Contact with and (suspected) exposure to COVID-19; R27.0 Ataxia, unspecified; R07.89 Other chest pain; I10 Essential (primary) hypertension; I65.21 Occlusion and stenosis of right carotid artery; I73.9 Peripheral vascular disease, unspecified; E11.9 Type 2 diabetes mellitus without complications; E78.5 Hyperlipidemia, unspecified; E66.9 Obesity, unspecified; F17.210 Nicotine dependence, cigarettes, uncomplicated; R29.705 NIHSS score 5; Z90.49 Acquired absence of other specified parts of digestive tract; Z90.710 Acquired absence of both cervix and uterus; Z79.899 Other long term (current) drug therapy; Z68.33 Body mass index [BMI] 33.0-33.9, adult; Z98.890 Other specified postprocedural states; Z98.891 History of uterine scar from previous surgery; Z79.82 Long term (current) use of aspirin
CPT/HCPCS: 36415; 70450; 70496; 70498; 70553; 71046; 80048; 80053; 80061; 82962; 83036; 84484; 85025; 92610; 93005; 96372; 96374; 96375; 96376; 97165; A9575; G0378; J1644; J2270; J2405; Q9967; U0003